=== PATIENT | female | born 1980 | race African-American/Black ===

== ENCOUNTER 2016-06-08 16:46 | Emergency (ER) | payer SELFPAY ==
[~2016-06-08] VITALS: Ht 167.6 cm; Wt 49.9 kg
[2016-06-08 17:20] VITALS: BP 130/83
[2016-06-08] MEDS ORDERED: CIPROFLOXACIN 0.3% OPHTH SOLUTION 5ML BOTTLE. AD STA (18:41)
[2016-06-08] MEDS ORDERED: AZITHROMYCIN 250 MG TABLET. PO ONE (18:45)
[2016-06-08] MEDS ORDERED: METRONIDAZOLE 500 MG TABLET. PO ONE (18:45)
[2016-06-08] MEDS ORDERED: CEFTRIAXONE IM 1 GM VIAL. IM ONE (18:45)
[2016-06-08] MEDS ORDERED: METR500T PO (19:07)
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
== END 2016-06-08 19:36 | disposition home or self-care (01) ==
LOC: ER 16:46
DX: H72.91 Unspecified perforation of tympanic membrane, right ear (principal); A59.01 Trichomonal vulvovaginitis; F12.10 Cannabis abuse, uncomplicated
CPT/HCPCS: 96372; 99283; J0696; Q0144

== ENCOUNTER 2017-06-09 04:29 | Emergency (ER) | payer SELFPAY ==
[2017-06-09] MEDS: IBUPROFEN 400 MG TABLET. PO (05:30)
== END 2017-06-09 06:04 | disposition home or self-care (01) ==
LOC: ER 04:29
DX: S46.912A Strain of unspecified muscle, fascia and tendon at shoulder and upper arm level, left arm, initial encounter (principal); F10.20 Alcohol dependence, uncomplicated; F12.10 Cannabis abuse, uncomplicated; W01.0XXA Fall on same level from slipping, tripping and stumbling without subsequent striking against object, initial encounter; Y93.89 Activity, other specified; Y92.89 Other specified places as the place of occurrence of the external cause; Y99.8 Other external cause status
CPT/HCPCS: 99283

== ENCOUNTER 2017-06-30 21:10 | Inpatient (IN) | payer SELFPAY ==
[2017-06-30] MEDS: ONDANSETRON PF 4 MG/2 ML VIAL. IV (21:44)
[2017-06-30] MEDS: IV NORMAL SALINE 1000ML BAG 1,000 ML IV ×2 (21:44→23:09)
[2017-06-30] MEDS: MORPHINE SULFATE 4 MG/ML DISP.SYRIN. IV (21:44)
[2017-06-30 21:46] LABS: BILIRUBIN,URINE NEGATIVE (NEG); CLARITY,URINE CLEAR; COLOR,URINE YELLOW; GLUCOSE,URINE NEGATIVE (NEG); NITRITE,URINE POSITIVE (NEG); PH,URINE 5.5; PROTEIN,URINE 30 mg/dL (NEG-TRACE); UROBILINOGEN,URINE 0.2 mg/dL (0.2 mg/dL)
[2017-06-30 21:47] LABS: URINE HCG POC HCG NEGATIVE (Negative)
[2017-06-30 21:56] LABS: BACTERIA,URINE MOD /HPF (0-FEW); RBC,URINE RARE /HPF (0-2); SQUAMOUS EPITHELIAL CELL,UR MANY /LPF; WBC,URINE RARE /HPF (0-4)
[2017-06-30 22:00] LABS: BASO # 0.1 x10^3/uL (0.0-0.2); BASO % 0 % (0-3); EOS % 0 % (0-3); HEMATOCRIT 37.3 % (36.0-47.0); HEMOGLOBIN 12.7 g/dL (12.0-15.5); LYMPH % 6 % (24-48); MEAN CORPUSCULAR HEMOGLOBIN 29 pg (25-35); MEAN CORPUSCULAR HGB CONC 34 g/dL (31-37); MEAN CORPUSCULAR VOLUME 86 fL (79-100); MONO # 0.9 x10^3/uL (0.0-1.1); MONO % 5 % (0-9); NEUT # 14.6 x10^3uL (1.8-7.7); NEUT % 88 % (31-73); PLATELET COUNT 110 x10^3/uL (140-400); RED BLOOD COUNT 4.36 x10^6/uL (3.50-5.40); RED CELL DISTRIBUTION WIDTH 13.2 % (11.5-14.5); WHITE BLOOD COUNT 16.6 x10^3/uL (4.0-11.0)
[2017-06-30 22:02] LABS: ADD MAN DIFF? YES
[2017-06-30 22:10] LABS: ANION GAP 21 (6-14); BLOOD UREA NITROGEN 9 mg/dL (7-20); BUN/CREATININE RATIO 13 (6-20); CALCIUM 8.6 mg/dL (8.5-10.1); CARBON DIOXIDE 21 mmol/L (21-32); CHLORIDE 96 mmol/L (98-107); CREATININE 0.7 mg/dL (0.6-1.0); GFR 114.6; GLUCOSE 111 mg/dL (70-99); POTASSIUM 3.3 mmol/L (3.5-5.1); SODIUM 138 mmol/L (136-145)
[2017-06-30 22:17] LABS: ALBUMIN 3.9 g/dL (3.4-5.0); ALK PHOS 84 U/L (46-116); ALT (SGPT) 48 U/L (14-59); AST (SGOT) 56 U/L (15-37); TOTAL BILIRUBIN 1.1 mg/dL (0.2-1.0)
[2017-06-30 22:23] LABS: TROPONINI < 0.017 ng/mL (0.000-0.055)
[2017-06-30 22:29] LABS: % BANDS 15 % (0-9); % LYMPHS 8 % (24-48); % METAS 1 % (0-0); % MONOS 2 % (0-10); % SEGS 74 % (35-66); PLT ESTIMATE DECREASED (ADEQUATE)
[2017-06-30] MEDS ORDERED: ACETAMINOPHEN 325 MG TABLET. PO (23:00)
[2017-06-30] MEDS ORDERED: fentaNYL PF VIAL 100 MCG/2 ML VIAL (23:02)
[2017-06-30] MEDS: AZITHROMYCIN 250 MG TABLET. PO (23:07)
[2017-06-30] MEDS: fentaNYL PF VIAL 100 MCG/2 ML VIAL IV (23:08)
[2017-06-30] MEDS: POTASSIUM CHLORIDE 20 MEQ TABLET.ER. PO (23:08)
[2017-06-30 23:17] LABS: LACTIC ACID 4.5 mmol/L (0.4-2.0)
[2017-07-01] MEDS: MORPHINE SULFATE 4 MG/ML DISP.SYRIN. IV ×4 (00:43→14:41)
[2017-07-01] MEDS ORDERED: PNEUMOCOCCAL VAX SCREEN BY RX. MC (01:15)
[2017-07-01 02:28] LABS: LACTIC ACID 1.2 mmol/L (0.4-2.0)
[2017-07-01 04:44] LABS: ADD MAN DIFF? NO
[2017-07-01 04:56] LABS: BASO % 0 % (0-3); EOS % 0 % (0-3); HEMATOCRIT 35.1 % (36.0-47.0); LYMPH # 1.6 x10^3/uL (1.0-4.8); LYMPH % 11 % (24-48); MEAN CORPUSCULAR HEMOGLOBIN 29 pg (25-35); MEAN CORPUSCULAR HGB CONC 34 g/dL (31-37); MEAN CORPUSCULAR VOLUME 86 fL (79-100); MONO # 0.7 x10^3/uL (0.0-1.1); MONO % 5 % (0-9); NEUT # 11.9 x10^3uL (1.8-7.7); NEUT % 83 % (31-73); PLATELET COUNT 104 x10^3/uL (140-400); RED BLOOD COUNT 4.09 x10^6/uL (3.50-5.40); RED CELL DISTRIBUTION WIDTH 13.3 % (11.5-14.5); WHITE BLOOD COUNT 14.3 x10^3/uL (4.0-11.0)
[2017-07-01 05:20] LABS: ALBUMIN 3.3 g/dL (3.4-5.0); ALBUMIN/GLOBULIN RATIO 0.8 (1.0-1.7); BLOOD UREA NITROGEN 8 mg/dL (7-20); BUN/CREATININE RATIO 13 (6-20); CREATININE 0.6 mg/dL (0.6-1.0); GFR 136.9; GLUCOSE 62 mg/dL (70-99); TOTAL PROTEIN 7.4 g/dL (6.4-8.2)
[2017-07-01 05:21] LABS: ALK PHOS 76 U/L (46-116); ALT (SGPT) 58 U/L (14-59); ANION GAP 13 (6-14); AST (SGOT) 54 U/L (15-37); CARBON DIOXIDE 25 mmol/L (21-32); CHLORIDE 101 mmol/L (98-107); POTASSIUM 3.3 mmol/L (3.5-5.1); SODIUM 139 mmol/L (136-145); TOTAL BILIRUBIN 1.1 mg/dL (0.2-1.0)
[2017-07-01] MEDS: POTASSIUM CHLORIDE 20 MEQ TABLET.ER. PO (10:35)
[2017-07-01] MEDS ORDERED: CONTRAST GIVEN MC (11:30)
[2017-07-01] MEDS: IOHEXOL 300 MG/ML 100ML VIAL. IV (12:40)
[2017-07-01] MEDS: PIPERACILLIN/TAZOBACTAM 4.5 GM in IV NORMAL SALINE 100ML 100 ML IV ×3 (14:38→23:07)
[2017-07-01] MEDS: ENOXAPARIN 40 MG/0.4 ML SYRINGE. SQ (15:49)
[2017-07-01] MEDS: PANTOPRAZOLE 40 MG TABLET.DR. PO (15:49)
[2017-07-01] MEDS: ONDANSETRON PF 4 MG/2 ML VIAL. IV (19:17)
[2017-07-01] MEDS ORDERED: ACETAMINOPHEN 325 MG TABLET. PO (19:45)
[2017-07-01] MEDS ORDERED: ONDANSETRON PF 4 MG/2 ML VIAL. IV (19:45)
[2017-07-01] MEDS: HYDROcodone/APAP 5/325MG 1 TAB TABLET PO (20:31)
[2017-07-01] MEDS: LACTOBACILLUS RHAMNOSUS GG 1 CAPSULE. PO (20:31)
[2017-07-02] MEDS: PIPERACILLIN/TAZOBACTAM 4.5 GM in IV NORMAL SALINE 100ML 100 ML IV ×4 (05:24→23:48)
[2017-07-02 06:30] LABS: HEMATOCRIT 36.8 % (36.0-47.0); HEMOGLOBIN 12.3 g/dL (12.0-15.5); MEAN CORPUSCULAR HEMOGLOBIN 29 pg (25-35); MEAN CORPUSCULAR HGB CONC 33 g/dL (31-37); MEAN CORPUSCULAR VOLUME 87 fL (79-100); PLATELET COUNT 90 x10^3/uL (140-400); RED BLOOD COUNT 4.21 x10^6/uL (3.50-5.40); RED CELL DISTRIBUTION WIDTH 13.4 % (11.5-14.5); WHITE BLOOD COUNT 7.4 x10^3/uL (4.0-11.0)
[2017-07-02 06:45] LABS: ALBUMIN/GLOBULIN RATIO 0.7 (1.0-1.7); ALK PHOS 63 U/L (46-116); ALT (SGPT) 35 U/L (14-59); ANION GAP 10 (6-14); AST (SGOT) 31 U/L (15-37); BLOOD UREA NITROGEN 4 mg/dL (7-20); BUN/CREATININE RATIO 6 (6-20); CALCIUM 8.6 mg/dL (8.5-10.1); CARBON DIOXIDE 27 mmol/L (21-32); CHLORIDE 101 mmol/L (98-107); CREATININE 0.7 mg/dL (0.6-1.0); GFR 114.6; GLUCOSE 76 mg/dL (70-99); POTASSIUM 3.8 mmol/L (3.5-5.1); SODIUM 138 mmol/L (136-145); TOTAL BILIRUBIN 1.1 mg/dL (0.2-1.0); TOTAL PROTEIN 7.3 g/dL (6.4-8.2)
[2017-07-02] MEDS: HYDROcodone/APAP 5/325MG 1 TAB TABLET PO ×2 (08:04→20:37)
[2017-07-02] MEDS: LACTOBACILLUS RHAMNOSUS GG 1 CAPSULE. PO ×2 (08:04→20:36)
[2017-07-02] MEDS: PANTOPRAZOLE 40 MG TABLET.DR. PO (08:04)
[2017-07-03 04:51] LABS: ADD MAN DIFF? NO
[2017-07-03 04:59] LABS: BASO % 0 % (0-3); EOS % 1 % (0-3); HEMATOCRIT 35.9 % (36.0-47.0); HEMOGLOBIN 12.2 g/dL (12.0-15.5); LYMPH # 1.3 x10^3/uL (1.0-4.8); LYMPH % 29 % (24-48); MEAN CORPUSCULAR HEMOGLOBIN 30 pg (25-35); MEAN CORPUSCULAR HGB CONC 34 g/dL (31-37); MEAN CORPUSCULAR VOLUME 87 fL (79-100); MONO # 0.4 x10^3/uL (0.0-1.1); MONO % 10 % (0-9); NEUT # 2.8 x10^3uL (1.8-7.7); NEUT % 61 % (31-73); PLATELET COUNT 96 x10^3/uL (140-400); RED BLOOD COUNT 4.14 x10^6/uL (3.50-5.40); RED CELL DISTRIBUTION WIDTH 13.4 % (11.5-14.5); WHITE BLOOD COUNT 4.6 x10^3/uL (4.0-11.0)
[2017-07-03] MEDS: PIPERACILLIN/TAZOBACTAM 4.5 GM in IV NORMAL SALINE 100ML 100 ML IV (05:38)
[2017-07-03 06:00] LABS: ANION GAP 12 (6-14); BLOOD UREA NITROGEN 4 mg/dL (7-20); CALCIUM 8.9 mg/dL (8.5-10.1); CARBON DIOXIDE 24 mmol/L (21-32); CHLORIDE 102 mmol/L (98-107); CREATININE 0.7 mg/dL (0.6-1.0); GFR 114.6; GLUCOSE 78 mg/dL (70-99); POTASSIUM 3.4 mmol/L (3.5-5.1); SODIUM 138 mmol/L (136-145)
[2017-07-03] MEDS: LACTOBACILLUS RHAMNOSUS GG 1 CAPSULE. PO ×2 (09:05→21:23)
[2017-07-03] MEDS: PANTOPRAZOLE 40 MG TABLET.DR. PO (09:05)
[2017-07-03] MEDS: AMOXICILLIN/K CLAV 875/125MG TABLET. PO ×2 (13:25→21:22)
[2017-07-04] MEDS: HYDROcodone/APAP 5/325MG 1 TAB TABLET PO (04:15)
[2017-07-04 05:06] LABS: ADD MAN DIFF? NO
[2017-07-04 05:28] LABS: BASO % 0 % (0-3); EOS % 0 % (0-3); HEMOGLOBIN 12.4 g/dL (12.0-15.5); LYMPH # 1.3 x10^3/uL (1.0-4.8); LYMPH % 19 % (24-48); MEAN CORPUSCULAR HEMOGLOBIN 29 pg (25-35); MEAN CORPUSCULAR HGB CONC 34 g/dL (31-37); MEAN CORPUSCULAR VOLUME 87 fL (79-100); MONO # 0.7 x10^3/uL (0.0-1.1); MONO % 11 % (0-9); NEUT # 4.7 x10^3uL (1.8-7.7); NEUT % 70 % (31-73); PLATELET COUNT 108 x10^3/uL (140-400); RED BLOOD COUNT 4.25 x10^6/uL (3.50-5.40); RED CELL DISTRIBUTION WIDTH 13.6 % (11.5-14.5); WHITE BLOOD COUNT 6.7 x10^3/uL (4.0-11.0)
[2017-07-04 05:45] LABS: ANION GAP 11 (6-14); BLOOD UREA NITROGEN 3 mg/dL (7-20); CALCIUM 8.9 mg/dL (8.5-10.1); CARBON DIOXIDE 26 mmol/L (21-32); CHLORIDE 102 mmol/L (98-107); CREATININE 0.6 mg/dL (0.6-1.0); GFR 136.9; GLUCOSE 92 mg/dL (70-99); POTASSIUM 3.3 mmol/L (3.5-5.1); SODIUM 139 mmol/L (136-145)
[2017-07-04] MEDS: PANTOPRAZOLE 40 MG TABLET.DR. PO (05:49)
[2017-07-04] MEDS: LACTOBACILLUS RHAMNOSUS GG 1 CAPSULE. PO (08:34)
[2017-07-04] MEDS: AMOXICILLIN/K CLAV 875/125MG TABLET. PO (08:34)
[2017-07-04] MEDS: POTASSIUM CHLORIDE 20 MEQ TABLET.ER. PO (14:36)
[2017-07-04] MEDS: PNEUMOC CONJ VACC 23-VALENT 0.5 ML VIAL. VAX IM (15:43)
== END 2017-07-04 16:00 | disposition home or self-care (01) | DRG 689 ==
LOC: ER 21:10 → 5 NORTH 23:10
DX: N39.0 Urinary tract infection, site not specified (principal); J18.9 Pneumonia, unspecified organism; E87.2 Acidosis; R04.2 Hemoptysis; E87.6 Hypokalemia; F12.10 Cannabis abuse, uncomplicated; F17.210 Nicotine dependence, cigarettes, uncomplicated; I10 Essential (primary) hypertension; K21.9 Gastro-esophageal reflux disease without esophagitis; Z82.49 Family history of ischemic heart disease and other diseases of the circulatory system; F14.10 Cocaine abuse, uncomplicated; F19.10 Other psychoactive substance abuse, uncomplicated
CPT/HCPCS: 36415; 71046; 71275; 80048; 80053; 81001; 81025; 83605; 84484; 85007; 85025; 85027; 87040; 90732; 93005; 96361; 96374; 96375; 99285; 99285-25; 99406; J0690; J1650; J2270; J2405; J2543; J3010; J7030; Q0144; Q9967

== ENCOUNTER 2017-12-02 00:56 | Emergency (ER) | payer SELFPAY ==
[~2017-12-02] VITALS: Ht 165.1 cm; Wt 49.9 kg
[~2017-12-02 00:56] MED LIST: IBUP-1027 PO; METR500T PO; [UNRECOGNIZED DRUG - REMARK]
[2017-12-02 02:13] LABS: BASO % 1 % (0-3); EOS % 0 % (0-3); HEMATOCRIT 40.9 % (36.0-47.0); HEMOGLOBIN 14.1 g/dL (12.0-15.5); LYMPH # 2.1 x10^3/uL (1.0-4.8); LYMPH % 56 % (24-48); MEAN CORPUSCULAR HEMOGLOBIN 31 pg (25-35); MEAN CORPUSCULAR HGB CONC 34 g/dL (31-37); MEAN CORPUSCULAR VOLUME 89 fL (79-100); MONO # 0.3 x10^3/uL (0.0-1.1); MONO % 9 % (0-9); NEUT # 1.2 x10^3uL (1.8-7.7); NEUT % 33 % (31-73); PLATELET COUNT 128 x10^3/uL (140-400); RED BLOOD COUNT 4.63 x10^6/uL (3.50-5.40); RED CELL DISTRIBUTION WIDTH 14.3 % (11.5-14.5); WHITE BLOOD COUNT 3.6 x10^3/uL (4.0-11.0)
[2017-12-02 02:33] LABS: CALCIUM 9.1 mg/dL (8.5-10.1); CREATININE 0.7 mg/dL (0.6-1.0); GFR 113.9; POTASSIUM 3.7 mmol/L (3.5-5.1)
[2017-12-02 02:39] LABS: ALBUMIN 4.5 g/dL (3.4-5.0); ALBUMIN/GLOBULIN RATIO 0.9 (1.0-1.7); TOTAL BILIRUBIN 0.3 mg/dL (0.2-1.0); TOTAL PROTEIN 9.3 g/dL (6.4-8.2)
[2017-12-02] MEDS ORDERED: IV NORMAL SALINE 1000ML BAG 1,000 ML IV ONE (04:00)
[2017-12-02] MEDS ORDERED: FAMOTIDINE 20 MG/2 ML VIAL IVP ONE (04:15)
[2017-12-02 04:30] VITALS: BP 104/59
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
--- NOTE | 2017-12-02 13:07 | EKG ---
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
== END 2017-12-02 06:17 | disposition home or self-care (01) ==
LOC: ER 00:56
DX: K29.70 Gastritis, unspecified, without bleeding (principal); F10.10 Alcohol abuse, uncomplicated; Y90.9 Presence of alcohol in blood, level not specified
CPT/HCPCS: 36415; 80053; 83690; 85025; 93005; 99285-25

== ENCOUNTER 2019-03-25 06:00 | Emergency (ER) | payer SELFPAY ==
[~2019-03-25] VITALS: Ht 157.5 cm; Wt 50.0 kg
[~2019-03-25 06:00] MED LIST changes: +ALBU2.5V8 INH; +CLON0.1T PO; +HYDR-2761 PO; +IPRA3AMP29 NEB; +LEVO500T59 PO; +Nicotine 21MG TD; +ONDA4TAB12 PO; +POTA20TA4 PO
[2019-03-25] MEDS ORDERED: IV NORMAL SALINE 1000ML BAG 1,000 ML IV SCH (06:45)
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
[2019-03-25 06:53] LABS: BASO % 1 % (0-3); EOS % 1 % (0-3); HEMATOCRIT 42.8 % (36.0-47.0); HEMOGLOBIN 14.4 g/dL (12.0-15.5); LYMPH # 2.1 x10^3/uL (1.0-4.8); LYMPH % 45 % (24-48); MEAN CORPUSCULAR HEMOGLOBIN 29 pg (25-35); MEAN CORPUSCULAR HGB CONC 34 g/dL (31-37); MEAN CORPUSCULAR VOLUME 86 fL (79-100); MONO # 0.4 x10^3/uL (0.0-1.1); MONO % 8 % (0-9); NEUT # 2.1 x10^3/uL (1.8-7.7); NEUT % 45 % (31-73); PLATELET COUNT 112 x10^3/uL (140-400); RED BLOOD COUNT 4.95 x10^6/uL (3.50-5.40); RED CELL DISTRIBUTION WIDTH 13.5 % (11.5-14.5); WHITE BLOOD COUNT 4.6 x10^3/uL (4.0-11.0)
--- NOTE | 2019-03-25 07:02 | EKG ---
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
[2019-03-25 07:05] LABS: CALCIUM 9.1 mg/dL (8.5-10.1); CREATININE 0.6 mg/dL (0.6-1.0); GFR 135.4; POTASSIUM 3.8 mmol/L (3.5-5.1)
[2019-03-25 07:11] LABS: ALBUMIN 4.9 g/dL (3.4-5.0); ALBUMIN/GLOBULIN RATIO 1.4 (1.0-1.7); TOTAL BILIRUBIN 0.9 mg/dL (0.2-1.0); TOTAL PROTEIN 8.4 g/dL (6.4-8.2)
[2019-03-25 07:13] LABS: PREG TEST PT QUAL NEGATIVE (NEG)
[2019-03-25 07:18] LABS: INFLUENZA A PATIENT NEGATIVE (NEGATIVE); INFLUENZA B PATIENT NEGATIVE (NEGATIVE)
[2019-03-25 07:36] LABS: PLT ESTIMATE DECREASED (ADEQUATE)
[2019-03-25 07:38] LABS: TARGET CELLS PRESENT
--- NOTE | 2019-03-25 07:41 | RAD ---
PA and lateral chest. HISTORY: Cough, chest pain PA and lateral views were taken of the chest. Lungs are free of infiltrates. Heart is normal in size without heart failure. There is no effusion. IMPRESSION: 1. No acute chest disease. Electronically signed by: Lalito Sotomayor MD (03/25/2019 7:38 AM) [id number]
[2019-03-25] MEDS ORDERED: IV NORMAL SALINE 1000ML BAG 1,000 ML IV ONE ×2 (07:45)
[2019-03-25 12:29] LABS: CALCIUM 7.9 mg/dL (8.5-10.1); CREATININE 0.6 mg/dL (0.6-1.0); GFR 135.4; POTASSIUM 3.6 mmol/L (3.5-5.1)
[2019-03-25 13:32] VITALS: BP 157/82
== END 2019-03-25 13:57 | disposition home or self-care (01) ==
LOC: ER 06:00
DX: F10.20 Alcohol dependence, uncomplicated (principal); R07.89 Other chest pain; E86.0 Dehydration; M54.5 Low back pain; I10 Essential (primary) hypertension; F17.210 Nicotine dependence, cigarettes, uncomplicated; F12.90 Cannabis use, unspecified, uncomplicated; Z98.890 Other specified postprocedural states; Y90.8 Blood alcohol level of 240 mg/100 ml or more
CPT/HCPCS: 36415; 71046; 80048; 80053; 83605; 84484; 84703; 85025; 87804; 93005; 96360; 96361; 99285; G0480; J7030

== ENCOUNTER 2019-09-04 12:27 | Emergency (ER) | payer SELFPAY ==
[~2019-09-04] VITALS: Ht 157.5 cm; Wt 48.2 kg
[2019-09-04] MEDS ORDERED: HYDROcodone/APAP 5/325MG 1 TAB TABLET PO ONE (14:15)
--- NOTE | 2019-09-04 14:24 | RAD ---
Left forearm 2 views, left wrist 3 views. HISTORY: Pain and swelling after a fall Left wrist 3 views were taken of the left wrist. There is a comminuted fracture the distal ulna. There is no other fracture noted at the left wrist. Distal radius is intact. Left forearm 2 views of the left forearm show a comminuted fracture the distal ulna. Radius fracture is not evident. IMPRESSION: 1. Comminuted fracture distal left ulna. 2. No radius fracture noted. 3. No other fracture noted at the left wrist. Electronically signed by: Lalito Sotomayor MD (09/04/2019 2:21 PM) [facility]
[2019-09-04] MEDS ORDERED: HYDR-2761 PO (16:14)
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
[2019-09-04 16:42] VITALS: BP 110/61
== END 2019-09-04 16:42 | disposition home or self-care (01) ==
LOC: ER 12:27
DX: S52.002A Unspecified fracture of upper end of left ulna, initial encounter for closed fracture (principal); I10 Essential (primary) hypertension; F17.200 Nicotine dependence, unspecified, uncomplicated; F10.20 Alcohol dependence, uncomplicated; Y90.9 Presence of alcohol in blood, level not specified; W10.8XXA Fall (on) (from) other stairs and steps, initial encounter; Y93.89 Activity, other specified; Y92.89 Other specified places as the place of occurrence of the external cause; Y99.8 Other external cause status
CPT/HCPCS: 29125; 73090; 73110; 99284

== ENCOUNTER 2020-04-24 14:21 | Inpatient (IN) | payer SELFPAY ==
[~2020-04-24] VITALS: Ht 157.5 cm; Wt 49.0 kg
[~2020-04-24 14:21] MED LIST changes: +MORPHINE SULFATE 4 MG/ML VIAL. IV PRN
[2020-04-24 15:27] LABS: BASO % 0 % (0-3); EOS % 0 % (0-3); HEMATOCRIT 40.5 % (36.0-47.0); HEMOGLOBIN 13.7 g/dL (12.0-15.5); LYMPH % 7 % (24-48); MEAN CORPUSCULAR HEMOGLOBIN 30 pg (25-35); MEAN CORPUSCULAR HGB CONC 34 g/dL (31-37); MEAN CORPUSCULAR VOLUME 88 fL (79-100); MONO # 0.7 x10^3/uL (0.0-1.1); MONO % 4 % (0-9); NEUT # 13.3 x10^3/uL (1.8-7.7); NEUT % 88 % (31-73); PLATELET COUNT 143 x10^3/uL (140-400); WHITE BLOOD COUNT 15.1 x10^3/uL (4.0-11.0)
[2020-04-24 15:28] LABS: BILIRUBIN,URINE SMALL (NEG); CLARITY,URINE TURBID; COLOR,URINE AMBER; NITRITE,URINE POSITIVE (NEG); PH,URINE 6.5 (<5.0-8.0); PROTEIN,URINE 30 mg/dL (NEG-TRACE)
[2020-04-24 15:38] LABS: BACTERIA,URINE MANY /HPF (0-FEW)
[2020-04-24 15:39] LABS: RBC,URINE 0 /HPF (0-2)
[2020-04-24 15:43] LABS: TRICHOMONAS,URINE PRESENT
[2020-04-24 15:46] LABS: U PREG PATIENT NEGATIVE (NEG)
[2020-04-24] MEDS ORDERED: IOHEXOL 300 MG/ML 100ML VIAL. IV ONE (16:15)
[2020-04-24 16:16] LABS: CALCIUM 9.1 mg/dL (8.5-10.1); CREATININE 0.7 mg/dL (0.6-1.0); GFR 112.7; POTASSIUM 3.5 mmol/L (3.5-5.1)
[2020-04-24 16:30] LABS: % BANDS 6 % (0-9); % MONOS 2 % (0-10); PLT ESTIMATE ADEQUATE (ADEQUATE)
[2020-04-24] MEDS ORDERED: CONTRAST GIVEN. MC PRN (16:30)
[2020-04-24 16:31] LABS: % LYMPHS 4 % (24-48); % SEGS 88 % (35-66); TARGET CELLS FEW
--- NOTE | 2020-04-24 16:56 | RAD ---
CT pelvis with IV contrast 04/24/2020. Reason for exam: Swelling at left labia. CT images were made through the pelvis following injection of 75 mL Omnipaque 300. Sagittal and coron al reconstructions were performed. Exposure: One or more of the following individualized dose reducti on techniques were utilized for this examination: 1. Automated exposure control 2. Adjustment of th e mA and/or kV according to patient size 3. Use of iterative reconstruction technique. FINDINGS: There is an oval area of fluid density in the region of the left labia. This abnormality ex tends over about 2.9 cm AP, 2.0 cm laterally, and 2.7 cm craniocaudally. There is no apparent extensi on up to the vagina. The initial rectal fossa appears unaffected. No abnormality is seen at the distal ureters or bladder. Mildly prominent inguinal lymph nodes are pr esumably reactive. There is no apparent pelvic adenopathy. The uterus contains a contraceptive device . This seems somewhat inferiorly positioned, with the lower and possibly protruding into or through t he cervical canal. The uterus and adnexal structures otherwise appear normal for age. No separate pel stephanie mass or inflammatory process is seen. IMPRESSION: There is a rim-enhancing fluid collection in the region of the left labia, consistent wit h history of abscess. Patient's contraceptive device may be more inferiorly positioned than desired. Electronically signed by: Todd Parrish Jr., MD (04/24/2020 4:54 PM) [id number]
[2020-04-24] MEDS ORDERED: PIPERACILLIN/TAZOBACTAM 4.5 GM in IV NORMAL SALINE 100ML 100 ML IV ONE (18:00)
[2020-04-24] MEDS ORDERED: VANCOMYCIN 1.25 GM in IV NORMAL SALINE 250ML 250 ML IV ONE (18:00)
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
[2020-04-24] MEDS ORDERED: MORPHINE SULFATE 2 MG/ML VIAL. IV PRN (18:15)
[2020-04-24] MEDS ORDERED: DEXTROSE 50% 25 GM / 50ML DISP.SYRIN. IV PRN (18:15)
[2020-04-24] MEDS ORDERED: ACETAMINOPHEN 325 MG TABLET. PO PRN (18:15)
[2020-04-24] MEDS ORDERED: DOCUSATE SODIUM 100 MG CAPSULE. PO PRN (18:15)
[2020-04-24] MEDS ORDERED: ONDANSETRON PF 4 MG/2 ML VIAL. IVP PRN (18:15)
[2020-04-24] MEDS ORDERED: SENNOSIDES 8.6 MG TABLET PO PRN (18:15)
--- NOTE | 2020-04-24 18:17 | PDOC1 ---
History and Physical Date of Service: DOS: DATE: 04/24/20 TIME: 18:09 Chief Complaint: Chief Complain: Vaginal swelling History of Present Illness: HPI: Patient is 39-year-old female with past medical history of multiple pregnancies, one-time and's history of sickle cell trait who presents with vaginal pain and discomfort for 2 days. She has associated lower back pain and chills for 3 to 4 days and a cough for 1 month. Patient also endorses some sharp chest pain during coughing. Patient states that she is sexually active. She does complain of some dysuria and itching in the area. Denies shortness of breath, diarrhea, abdominal pain or palpitations. No history of sick contacts. Past Medical/Surgical History: PMH/PSH: PMHx: Sickle cell trait, 6 pregnancies and 1 Past surgical history: Left femur fracture with surgery Allergies: Allergies: Coded Allergies: No Known Drug Allergies (Unverified , 09/04/19) Family History: Family History: MD in the father and hypertension Social History: Social History: Endorses history of marijuana use and cocaine abuse. Current Medications: Current Medications Current Medications Iohexol (Omnipaque 300 Mg/ml) 75 ml 1X ONCE IV Last administered on 04/24/20at 16:40; Start 04/24/20 at 16:15; Stop 04/24/20 at 16:17; Status DC Info (CONTRAST GIVEN -- Rx MONITORING) 1 each PRN DAILY PRN MC SEE COMMENTS; Start 04/24/20 at 16:30; Stop 04/26/20 at 16:29 Piperacillin Sod/ Tazobactam Sod 4.5 gm/Sodium Chloride 100 ml @ 200 mls/hr 1X ONCE IV Last administered on 04/24/20at 18:04; Start 04/24/20 at 18:00; Stop 04/24/20 at 18:29 Vancomycin HCl (Vanco Per Pharmacy) 1 each PRN DAILY PRN MC SEE COMMENTS; Start 04/24/20 at 18:00; Status UNV Vancomycin HCl 1.25 gm/Sodium Chloride 250 ml @ 166.667 mls/hr 1X ONCE IV ; Start 04/24/20 at 18:00; Stop 04/24/20 at 19:29 Active Scripts Active Hydrocodone-Apap 5-325 (Hydrocodone Bit/Acetaminophen) 1 Tab Tablet 1 Tab PO PRN Q6HRS PRN 5 Days Proair Hfa Inhaler (Albuterol Sulfate) 8.5 Gm Hfa.aer.ad 1 Puff INH PRN Q6HRS PRN 14 Days Levaquin (Levofloxacin) 500 Mg Tablet 1 Tab PO DAILY Clonidine Hcl 0.1 Mg Tablet 0.1 Mg PO BID Ondansetron Odt (Ondansetron) 4 Mg Tab.rapdis 4 Mg PO PRN Q6HRS PRN Klor-Con M20 (Potassium Chloride) 20 Meq Tab.er.prt 20 Meq PO DAILYWBKFT MDD 1 Hydrocodone-Apap 5-325 (Hydrocodone Bit/Acetaminophen) 1 Each Tablet 1 Tab PO PRN Q4HRS PRN [Nicotine 21MG] 1 PATCH Patch 1 Patch TD DAILY Duoneb 0.5-3(2.5) Mg/3 Ml (Albuterol/Ipratropium) 3 Ml Ampul.neb 3 Ml NEB PRN Q2HR PRN MDD soa Reported [{No home meds}] ROS: Review of Systems Review of System REVIEW OF SYSTEMS: GENERAL: Denies weakness SKIN: No bruising, hair changes or rashes. EYES: No blurred, double or loss of vision. NOSE AND THROAT: No history of nosebleeds, hoarseness or sore throat. HEART: No history of palpitations, chest pain or shortness of breath on exertion. LUNGS: Denies cough, hemoptysis, wheezing or shortness of breath. GASTROINTESTINAL: Denies changes in appetite, nausea, vomiting, diarrhea or constipation. GENITOURINARY: No history of frequency, urgency, hesitancy or nocturia. NEUROLOGIC: Denies history of numbness, tingling, or tremor. PSYCHIATRIC: No history of panic, anxiety or depression. ENDOCRINE: No history of heat or cold intolerance, polyuria or polydipsia. EXTREMITIES: Denies joint pain, pain on walking or stiffness. Physical Exam: Vital Signs: Vital Signs Date Time Temp Pulse Resp B/P (MAP) Pulse Ox O2 Delivery O2 Flow Rate FiO2 04/24/20 14:25 98.2 113 16 151/77 (101) 100 Room Air 98.2 Physcial Exam: GEN: No apparent distress. Alert and oriented HEENT: Normal cephalic, atraumatic, external auditory canals are patent EYES: Extraocular muscles are intact, pupil are equally round and reactive to light and accommodation MUSCULOSKELETAL: Well developed , well nourished, good range of motion ENDOCRINE: No thyromegaly was palpated LYMPHATICS: No cervical chain or axillary nodes were noted HEMATOPOIETIC: No bruising NECK: Supple, no JVD, no thyromegaly was noted LUNGS: Clear to auscultation in all lung irby without rhonchi or wheezing HEART: RRR, S!, S2 present. Peripheral pulses intact, no obvious murmurs noted ABDOMEN: Soft, nontender. Positive bowel sounds, no organomegaly, normal bowel sounds EXTREMITIES: Without clubbing, cyanosis, or edema. Pedal pulses intact. Negative Homans sign NEUROLOGIC: Normal speech and tone. A&O x 3, moves all extremities, no obvious focal deficits PSYCHIATRIC: Normal affect, normal mood. Stable SKIN: Left labial abscess with purulent drainage VASCULAR: Good capillary refill, neurovascular bundle appears to be intact Labs: Labs: Laboratory Tests Test 04/24/20 15:15 04/24/20 15:50 White Blood Count 15.1 x10^3/uL (4.0-11.0) Red Blood Count 4.60 x10^6/uL (3.50-5.40) Hemoglobin 13.7 g/dL (12.0-15.5) Hematocrit 40.5 % (36.0-47.0) Mean Corpuscular Volume 88 fL (79-100) Mean Corpuscular Hemoglobin 30 pg (25-35) Mean Corpuscular Hemoglobin Concent 34 g/dL (31-37) Red Cell Distribution Width 13.0 % (11.5-14.5) Platelet Count 143 x10^3/uL (140-400) Neutrophils (%) (Auto) 88 % (31-73) Lymphocytes (%) (Auto) 7 % (24-48) Monocytes (%) (Auto) 4 % (0-9) Eosinophils (%) (Auto) 0 % (0-3) Basophils (%) (Auto) 0 % (0-3) Neutrophils # (Auto) 13.3 x10^3/uL (1.8-7.7) Lymphocytes # (Auto) 1.0 x10^3/uL (1.0-4.8) Monocytes # (Auto) 0.7 x10^3/uL (0.0-1.1) Eosinophils # (Auto) 0.0 x10^3/uL (0.0-0.7) Basophils # (Auto) 0.0 x10^3/uL (0.0-0.2) Segmented Neutrophils % 88 % (35-66) Band Neutrophils % 6 % (0-9) Lymphocytes % 4 % (24-48) Monocytes % 2 % (0-10) Platelet Estimate Adequate (ADEQUATE) Target Cells Few Urine Collection Type Unknown Urine Color Nathalia Urine Clarity Turbid Urine pH 6.5 (<5.0-8.0) Urine Specific [place] 1.020 (1.000-1.030) Urine Protein 30 mg/dL (NEG-TRACE) Urine Glucose (UA) Negative mg/dL (NEG) Urine Ketones (Stick) 40 mg/dL (NEG) Urine Blood Negative (NEG) Urine Nitrite Positive (NEG) Urine Bilirubin Small (NEG) Urine Urobilinogen Dipstick 1.0 mg/dL (0.2 mg/dL) Urine Leukocyte Esterase Moderate (NEG) Urine RBC 0 /HPF (0-2) Urine WBC 11-20 /HPF (0-4) Urine Squamous Epithelial Cells Many /LPF Urine Bacteria Many /HPF (0-FEW) Urine Mucus Marked /LPF Urine Trichomonas Present Urine Test Negative (NEG) Sodium Level 131 mmol/L (136-145) Potassium Level 3.5 mmol/L (3.5-5.1) Chloride Level 95 mmol/L (98-107) Carbon Dioxide Level 26 mmol/L (21-32) Anion Gap 10 (6-14) Blood Urea Nitrogen 6 mg/dL (7-20) Creatinine 0.7 mg/dL (0.6-1.0) Estimated GFR (Cockcroft-Gault) 112.7 Glucose Level 116 mg/dL (70-99) Calcium Level 9.1 mg/dL (8.5-10.1) Laboratory Tests Test 04/24/20 15:15 04/24/20 15:50 White Blood Count 15.1 x10^3/uL (4.0-11.0) Red Blood Count 4.60 x10^6/uL (3.50-5.40) Hemoglobin 13.7 g/dL (12.0-15.5) Hematocrit 40.5 % (36.0-47.0) Mean Corpuscular Volume 88 fL (79-100) Mean Corpuscular Hemoglobin 30 pg (25-35) Mean Corpuscular Hemoglobin Concent 34 g/dL (31-37) Red Cell Distribution Width 13.0 % (11.5-14.5) Platelet Count 143 x10^3/uL (140-400) Neutrophils (%) (Auto) 88 % (31-73) Lymphocytes (%) (Auto) 7 % (24-48) Monocytes (%) (Auto) 4 % (0-9) Eosinophils (%) (Auto) 0 % (0-3) Basophils (%) (Auto) 0 % (0-3) Neutrophils # (Auto) 13.3 x10^3/uL (1.8-7.7) Lymphocytes # (Auto) 1.0 x10^3/uL (1.0-4.8) Monocytes # (Auto) 0.7 x10^3/uL (0.0-1.1) Eosinophils # (Auto) 0.0 x10^3/uL (0.0-0.7) Basophils # (Auto) 0.0 x10^3/uL (0.0-0.2) Segmented Neutrophils % 88 % (35-66) Band Neutrophils % 6 % (0-9) Lymphocytes % 4 % (24-48) Monocytes % 2 % (0-10) Platelet Estimate Adequate (ADEQUATE) Target Cells Few Urine Collection Type Unknown Urine Color Nathalia Urine Clarity Turbid Urine pH 6.5 (<5.0-8.0) Urine Specific [place] 1.020 (1.000-1.030) Urine Protein 30 mg/dL (NEG-TRACE) Urine Glucose (UA) Negative mg/dL (NEG) Urine Ketones (Stick) 40 mg/dL (NEG) Urine Blood Negative (NEG) Urine Nitrite Positive (NEG) Urine Bilirubin Small (NEG) Urine Urobilinogen Dipstick 1.0 mg/dL (0.2 mg/dL) Urine Leukocyte Esterase Moderate (NEG) Urine RBC 0 /HPF (0-2) Urine WBC 11-20 /HPF (0-4) Urine Squamous Epithelial Cells Many /LPF Urine Bacteria Many /HPF (0-FEW) Urine Mucus Marked /LPF Urine Trichomonas Present Urine Test Negative (NEG) Sodium Level 131 mmol/L (136-145) Potassium Level 3.5 mmol/L (3.5-5.1) Chloride Level 95 mmol/L (98-107) Carbon Dioxide Level 26 mmol/L (21-32) Anion Gap 10 (6-14) Blood Urea Nitrogen 6 mg/dL (7-20) Creatinine 0.7 mg/dL (0.6-1.0) Estimated GFR (Cockcroft-Gault) 112.7 Glucose Level 116 mg/dL (70-99) Calcium Level 9.1 mg/dL (8.5-10.1) Images: Images Pelvic CT IMPRESSION: There is a rim-enhancing fluid collection in the region of the left labia, consistent with history of abscess. Patient's contraceptive device may be more inferiorly positioned than desired. Assessment/Plan Assessment/Plan Sepsis due to UTI and labial abscess, trichomonas and possible gram-negative organisms Left labial abscess Trichomonal infection Acute UTI Acute electrolyte derangement suggestive of volume depletionhyponatremia, hypochloremia Malpositioned IUD Polysubstance abuse Admit to medicine for further management Gynecology consult for management of labial abscess and IUD malpositioned Continue empiric IV antibiotics HIV testing Pending Chlamydia/gonorrhea PCR ID consult Lovenox for DVT prophylaxis ADA diet Full code Discussed with RN and SW Disposition pending NITROGLYCERIN DISTRIBUTOR evaluation Surrogate decision maker is the mother Justifications for Admission Other Justification GAUTAM JONES MD Apr 24, 2020 18:17
[2020-04-24] MEDS: IV NORMAL SALINE 1000ML BAG 1,000 ML IV SCH (18:40)
[2020-04-24] MEDS: VANCOMYCIN PER PHARMACY MC PRN (19:25)
--- NOTE | 2020-04-24 19:27 | NUR ---
Pharmacy Vancomycin Dosing Note S:Consulted to monitor and dose vancomycin started 04/24/20. O:FLAQUITA CÁRDENAS is a 39 year old F with Cellulitis . Height: 5 feet, 2 inches Weight: 50.0 kg [place] Body Weight: 50.10 Adjusted Body Weight: 50.06 Dosing Weight: Actual Other Antibiotics: ZOSYN X1 LABS: Last BUN: 6 Last Creatinine: 0.7 Creatinine Clearance: 85 mL/min Last WBC: 15.1 Last Procalcitonin: Tmax (past 24 hours): 98.2 Microbiology: I/O: Drug Levels: Last level: on at Last dose given 04/24/20 at 1836 Vancomycin Dosing: Loading Dose: 1250 mg x1 Dosing Weight: Actual Target Trough: 10-20 A: Based on: Body weight and renal funcion P: 1. After loading dose, start Vancomycin 750 mg IV q12h 2. Follow up Trough level on 04/26/20 at 0600 3. Pharmacy will continue to monitor, follow and adjust therapy as needed. JAMEL BENITEZ RPH, 04/24/20 1920
--- NOTE | 2020-04-24 20:41 | RAD ---
EXAM: XR CHEST 1V INDICATION: Reason: cough / Spl. Instructions: / History: . TECHNIQUE: Single view COMPARISON: Chest x-ray of 03/23/2019, CT angiogram chest of 07/01/2017 FINDINGS: The heart size is normal. The great vessels appear unremarkable. There is no hilar or mediastinal mass. The lungs are clear. There is no pleural effusion or pneumothorax. There are no significant osseous abnormalities. Prominent nipple shadows bilaterally are incidentally noted similar to prior. IMPRESSION: No active cardiopulmonary disease. Electronically signed by: Yoana Hodges MD (04/24/2020 8:38 PM) [facility] – [place]
[2020-04-24 21:35] VITALS: BP 158/82
--- NOTE | 2020-04-24 21:35 | NUR ---
The patient, FLAQUITA CÁRDENAS, 39 y/o, F admitted by GAUTAM JONES MD, was given written information regarding hospital policies, unit procedures and contact persons. Valuables were checked and pt refused any items to be locked up in security. VSS. Denies needs other than pain meds. Will continue to monitor.
[2020-04-24] MEDS: LACTOBACILLUS RHAMNOSUS GG 1 CAPSULE. PO SCH (21:54)
[2020-04-24] MEDS: ENOXAPARIN 40 MG/0.4 ML SYRINGE. SQ SCH (21:55)
[2020-04-24] MEDS: HYDROcodone/APAP 5/325MG 1 TAB TABLET PO PRN (21:58)
[2020-04-24] MEDS ORDERED: IBUP-1027 PO (22:17)
[2020-04-24] MEDS ORDERED: ACET325T9 PO (22:17)
[2020-04-24] MEDS ORDERED: NAPR220T70 PO (22:17)
[2020-04-24 23:00] VITALS: BP 112/61
[2020-04-25 03:29] VITALS: BP 99/63
[2020-04-25] MEDS: IV NORMAL SALINE 1000ML BAG 1,000 ML IV SCH ×3 (06:25→21:30)
[2020-04-25] MEDS: HYDROcodone/APAP 5/325MG 1 TAB TABLET PO PRN ×3 (06:25→21:31)
[2020-04-25] MEDS: VANCOMYCIN 750 MG in IV NORMAL SALINE 250ML 250 ML IV SCH ×2 (06:26→18:14)
[2020-04-25 07:00] VITALS: BP 125/71
[2020-04-25 07:24] LABS: BASO % 0 % (0-3); EOS % 0 % (0-3); HEMATOCRIT 36.1 % (36.0-47.0); LYMPH # 0.6 x10^3/uL (1.0-4.8); LYMPH % 5 % (24-48); MEAN CORPUSCULAR HEMOGLOBIN 29 pg (25-35); MEAN CORPUSCULAR HGB CONC 33 g/dL (31-37); MEAN CORPUSCULAR VOLUME 88 fL (79-100); MONO # 0.6 x10^3/uL (0.0-1.1); MONO % 5 % (0-9); NEUT # 11.8 x10^3/uL (1.8-7.7); NEUT % 90 % (31-73); PLATELET COUNT 119 x10^3/uL (140-400); RED BLOOD COUNT 4.12 x10^6/uL (3.50-5.40); RED CELL DISTRIBUTION WIDTH 12.7 % (11.5-14.5)
[2020-04-25 08:04] LABS: CREATININE 0.6 mg/dL (0.6-1.0); GFR 134.7; MAGNESIUM 1.6 mg/dL (1.8-2.4); PHOSPHORUS 3.7 mg/dL (2.6-4.7); POTASSIUM 3.1 mmol/L (3.5-5.1)
[2020-04-25] MEDS: LACTOBACILLUS RHAMNOSUS GG 1 CAPSULE. PO SCH ×2 (09:00→21:23)
--- NOTE | 2020-04-25 09:48 | PDOC ---
Infectious Disease Note Vital Signs: Vital Signs Vital Signs Date Time Temp Pulse Resp B/P (MAP) Pulse Ox O2 Delivery O2 Flow Rate FiO2 04/25/20 07:00 98.6 78 22 125/71 (89) 100 Room Air 98.6 Medications: Inpatient Meds: Medications reviewed. Labs: Lab Laboratory Tests Test 04/24/20 15:15 04/24/20 15:50 04/25/20 06:15 White Blood Count 15.1 x10^3/uL (4.0-11.0) 13.0 x10^3/uL (4.0-11.0) Red Blood Count 4.60 x10^6/uL (3.50-5.40) 4.12 x10^6/uL (3.50-5.40) Hemoglobin 13.7 g/dL (12.0-15.5) 12.0 g/dL (12.0-15.5) Hematocrit 40.5 % (36.0-47.0) 36.1 % (36.0-47.0) Mean Corpuscular Volume 88 fL (79-100) 88 fL (79-100) Mean Corpuscular Hemoglobin 30 pg (25-35) 29 pg (25-35) Mean Corpuscular Hemoglobin Concent 34 g/dL (31-37) 33 g/dL (31-37) Red Cell Distribution Width 13.0 % (11.5-14.5) 12.7 % (11.5-14.5) Platelet Count 143 x10^3/uL (140-400) 119 x10^3/uL (140-400) Neutrophils (%) (Auto) 88 % (31-73) 90 % (31-73) Lymphocytes (%) (Auto) 7 % (24-48) 5 % (24-48) Monocytes (%) (Auto) 4 % (0-9) 5 % (0-9) Eosinophils (%) (Auto) 0 % (0-3) 0 % (0-3) Basophils (%) (Auto) 0 % (0-3) 0 % (0-3) Neutrophils # (Auto) 13.3 x10^3/uL (1.8-7.7) 11.8 x10^3/uL (1.8-7.7) Lymphocytes # (Auto) 1.0 x10^3/uL (1.0-4.8) 0.6 x10^3/uL (1.0-4.8) Monocytes # (Auto) 0.7 x10^3/uL (0.0-1.1) 0.6 x10^3/uL (0.0-1.1) Eosinophils # (Auto) 0.0 x10^3/uL (0.0-0.7) 0.0 x10^3/uL (0.0-0.7) Basophils # (Auto) 0.0 x10^3/uL (0.0-0.2) 0.0 x10^3/uL (0.0-0.2) Segmented Neutrophils % 88 % (35-66) Band Neutrophils % 6 % (0-9) Lymphocytes % 4 % (24-48) Monocytes % 2 % (0-10) Platelet Estimate Adequate (ADEQUATE) Target Cells Few Urine Collection Type Unknown Urine Color Nathalia Urine Clarity Turbid Urine pH 6.5 (<5.0-8.0) Urine Specific [place] 1.020 (1.000-1.030) Urine Protein 30 mg/dL (NEG-TRACE) Urine Glucose (UA) Negative mg/dL (NEG) Urine Ketones (Stick) 40 mg/dL (NEG) Urine Blood Negative (NEG) Urine Nitrite Positive (NEG) Urine Bilirubin Small (NEG) Urine Urobilinogen Dipstick 1.0 mg/dL (0.2 mg/dL) Urine Leukocyte Esterase Moderate (NEG) Urine RBC 0 /HPF (0-2) Urine WBC 11-20 /HPF (0-4) Urine Squamous Epithelial Cells Many /LPF Urine Bacteria Many /HPF (0-FEW) Urine Mucus Marked /LPF Urine Trichomonas Present Urine Test Negative (NEG) Sodium Level 131 mmol/L (136-145) 132 mmol/L (136-145) Potassium Level 3.5 mmol/L (3.5-5.1) 3.1 mmol/L (3.5-5.1) Chloride Level 95 mmol/L (98-107) 97 mmol/L (98-107) Carbon Dioxide Level 26 mmol/L (21-32) 22 mmol/L (21-32) Anion Gap 10 (6-14) 13 (6-14) Blood Urea Nitrogen 6 mg/dL (7-20) 6 mg/dL (7-20) Creatinine 0.7 mg/dL (0.6-1.0) 0.6 mg/dL (0.6-1.0) Estimated GFR (Cockcroft-Gault) 112.7 134.7 Glucose Level 116 mg/dL (70-99) 82 mg/dL (70-99) Calcium Level 9.1 mg/dL (8.5-10.1) 8.0 mg/dL (8.5-10.1) Phosphorus Level 3.7 mg/dL (2.6-4.7) Magnesium Level 1.6 mg/dL (1.8-2.4) Objective: Assessment: Patient seen and examined ID consult dictated Plan: Plan of Care [id number] Thank you RANDELL HEATON MD Apr 25, 2020 09:48
--- NOTE | 2020-04-25 10:40 | PDOC ---
[employer] PROGRESS NOTE Date of Service DOS: DATE: 04/25/20 TIME: 10:39 Chief Complaint Chief Complaint Sepsis due to UTI and labial abscess, trichomonas and possible gram-negative organisms Left labial abscess Trichomonal infection Acute UTI Acute electrolyte derangement suggestive of volume depletionhyponatremia, hypochloremia, hypokalemia and hypomagnesemia Malpositioned IUD Polysubstance abuse Admit to medicine for further management Gynecology consult for management of labial abscess and IUD malpositioned Continue empiric IV antibiotics HIV testing Pending Chlamydia/gonorrhea PCR IV electrolyte replacement as needed ID consult Lovenox for DVT prophylaxis ADA diet Full code Discussed with RN and SW Disposition pending CLAIM PROCESSING SPECIALIST evaluation Surrogate decision maker is the mother History of Present Illness History of Present Illness 04/25/2020 No acute events overnight. Afebrile. Patient does endorse some chills. Denies nausea or vomiting. No concerns from nursing. Patient's chart, labs, images were reviewed and discussed with RN 39-year-old female with past medical history of multiple pregnancies, one-time and's history of sickle cell trait who presents with vaginal pain and discomfort for 2 days. She has associated lower back pain and chills for 3 to 4 days and a cough for 1 month. Patient also endorses some sharp chest pain during coughing. Patient states that she is sexually active. She does complain of some dysuria and itching in the area. Denies shortness of breath, diarrhea, abdominal pain or palpitations. No history of sick contacts. Vitals/I&O Vitals/I&O: Vital Signs Date Time Temp Pulse Resp B/P (MAP) Pulse Ox O2 Delivery O2 Flow Rate FiO2 04/25/20 10:13 Room Air 04/25/20 07:00 98.6 78 22 125/71 (89) 100 98.6 I & O 04/24/20 04/24/20 04/25/20 15:00 23:00 07:00 Intake Total 1700 ml Balance 1700 ml Physical Exam Lungs: Crackles Labs Labs: Laboratory Tests Test 04/24/20 15:15 04/24/20 15:50 04/25/20 06:15 White Blood Count 15.1 x10^3/uL (4.0-11.0) 13.0 x10^3/uL (4.0-11.0) Red Blood Count 4.60 x10^6/uL (3.50-5.40) 4.12 x10^6/uL (3.50-5.40) Hemoglobin 13.7 g/dL (12.0-15.5) 12.0 g/dL (12.0-15.5) Hematocrit 40.5 % (36.0-47.0) 36.1 % (36.0-47.0) Mean Corpuscular Volume 88 fL (79-100) 88 fL (79-100) Mean Corpuscular Hemoglobin 30 pg (25-35) 29 pg (25-35) Mean Corpuscular Hemoglobin Concent 34 g/dL (31-37) 33 g/dL (31-37) Red Cell Distribution Width 13.0 % (11.5-14.5) 12.7 % (11.5-14.5) Platelet Count 143 x10^3/uL (140-400) 119 x10^3/uL (140-400) Neutrophils (%) (Auto) 88 % (31-73) 90 % (31-73) Lymphocytes (%) (Auto) 7 % (24-48) 5 % (24-48) Monocytes (%) (Auto) 4 % (0-9) 5 % (0-9) Eosinophils (%) (Auto) 0 % (0-3) 0 % (0-3) Basophils (%) (Auto) 0 % (0-3) 0 % (0-3) Neutrophils # (Auto) 13.3 x10^3/uL (1.8-7.7) 11.8 x10^3/uL (1.8-7.7) Lymphocytes # (Auto) 1.0 x10^3/uL (1.0-4.8) 0.6 x10^3/uL (1.0-4.8) Monocytes # (Auto) 0.7 x10^3/uL (0.0-1.1) 0.6 x10^3/uL (0.0-1.1) Eosinophils # (Auto) 0.0 x10^3/uL (0.0-0.7) 0.0 x10^3/uL (0.0-0.7) Basophils # (Auto) 0.0 x10^3/uL (0.0-0.2) 0.0 x10^3/uL (0.0-0.2) Segmented Neutrophils % 88 % (35-66) Band Neutrophils % 6 % (0-9) Lymphocytes % 4 % (24-48) Monocytes % 2 % (0-10) Platelet Estimate Adequate (ADEQUATE) Target Cells Few Urine Collection Type Unknown Urine Color Nathalia Urine Clarity Turbid Urine pH 6.5 (<5.0-8.0) Urine Specific [place] 1.020 (1.000-1.030) Urine Protein 30 mg/dL (NEG-TRACE) Urine Glucose (UA) Negative mg/dL (NEG) Urine Ketones (Stick) 40 mg/dL (NEG) Urine Blood Negative (NEG) Urine Nitrite Positive (NEG) Urine Bilirubin Small (NEG) Urine Urobilinogen Dipstick 1.0 mg/dL (0.2 mg/dL) Urine Leukocyte Esterase Moderate (NEG) Urine RBC 0 /HPF (0-2) Urine WBC 11-20 /HPF (0-4) Urine Squamous Epithelial Cells Many /LPF Urine Bacteria Many /HPF (0-FEW) Urine Mucus Marked /LPF Urine Trichomonas Present Urine Test Negative (NEG) Sodium Level 131 mmol/L (136-145) 132 mmol/L (136-145) Potassium Level 3.5 mmol/L (3.5-5.1) 3.1 mmol/L (3.5-5.1) Chloride Level 95 mmol/L (98-107) 97 mmol/L (98-107) Carbon Dioxide Level 26 mmol/L (21-32) 22 mmol/L (21-32) Anion Gap 10 (6-14) 13 (6-14) Blood Urea Nitrogen 6 mg/dL (7-20) 6 mg/dL (7-20) Creatinine 0.7 mg/dL (0.6-1.0) 0.6 mg/dL (0.6-1.0) Estimated GFR (Cockcroft-Gault) 112.7 134.7 Glucose Level 116 mg/dL (70-99) 82 mg/dL (70-99) Calcium Level 9.1 mg/dL (8.5-10.1) 8.0 mg/dL (8.5-10.1) Phosphorus Level 3.7 mg/dL (2.6-4.7) Magnesium Level 1.6 mg/dL (1.8-2.4) Assessment and Plan Assessmemt and Plan Problems Medical Problems: (1) Left genital labial abscess Status: Acute (2) Sepsis Status: Acute (3) UTI (urinary tract infection) Status: Acute Comment Review of Relevant I have reviewed the following items barry (where applicable) has been applied. Medications: Current Medications Medications (Trade) Dose Ordered Sig/Sandra Route PRN Reason Start Time Stop Time Status Last Admin Dose Admin Iohexol (Omnipaque 300 Mg/ml) 75 ml 1X ONCE IV 04/24/20 16:15 04/24/20 16:17 DC 04/24/20 16:40 Piperacillin Sod/ Tazobactam Sod 4.5 gm/Sodium Chloride 100 ml @ 200 mls/hr 1X ONCE IV 04/24/20 18:00 04/24/20 18:29 DC 04/24/20 18:04 Vancomycin HCl (Vanco Per Pharmacy) 1 each PRN DAILY PRN MC SEE COMMENTS 04/24/20 18:00 04/24/20 19:25 Vancomycin HCl 1.25 gm/Sodium Chloride 250 ml @ 166.667 mls/hr 1X ONCE IV 04/24/20 18:00 04/24/20 19:29 DC 04/24/20 18:36 Ondansetron HCl (Zofran) 4 mg PRN Q6HRS PRN IVP NAUSEA/VOMITING 04/24/20 18:15 04/24/20 20:35 Sodium Chloride 1,000 ml @ 100 mls/hr Q10H IV 04/24/20 18:30 04/25/20 06:25 Enoxaparin Sodium (Lovenox 40mg Syringe) 40 mg Q24H SQ 04/24/20 21:00 04/24/20 21:55 Acetaminophen/ Hydrocodone Bitart (Lortab 5/325) 1 tab PRN Q4HRS PRN PO MODERATE-SEVERE PAIN 04/24/20 18:15 04/25/20 06:25 Morphine Sulfate (Morphine Sulfate) 1 mg PRN Q1HR PRN IV PAIN 04/24/20 18:15 04/25/20 10:13 Vancomycin HCl 750 mg/Sodium Chloride 250 ml @ 250 mls/hr Q12H IV 04/25/20 06:30 04/25/20 06:26 Lactobacillus Rhamnosus (Culturelle) 1 cap BID PO 04/24/20 21:00 04/24/20 21:54 Justifications for Admission UTI Indications Is NPO status required?: Yes Justification for admission: Patient may require to be NPO for greater 24hours making it medically necessary to manage patient as inpatient. Worse Clinical Findings?: Yes Justification for admission: Patient's worsening clinical findings as indicated (by a fever of & pain of) despite outpatient/observation treatment makes it imperative that patient is managed as an inpatient. Other Justification GAUTAM JONES MD Apr 25, 2020 10:40
--- NOTE | 2020-04-25 10:45 | CONS ---
DATE OF CONSULTATION: 04/25/2020 SUBJECTIVE: This patient is a 39-year-old -[place] female who is 7, para 7 and admitted to the hospital because of swelling in the vaginal area and also having drainage on the left side labia and no history of fever. COVID-19 is negative. She says she has got this just in the past 2 days and other than that, there is no previous history of infection as such. She is admitted to the hospital for IV fluids and IV antibiotics. PHYSICAL EXAMINATION: ABDOMEN: Feels soft. PELVIC: Shows there is a left side labial swelling, which is quite tender to palpate, but she is draining a lot of pus from that left side labial abscess. This could be a Bartholin abscess as well and since she is having pain, a bimanual exam could not be done at this time. IMPRESSION: Left side Bartholin abscess. RECOMMENDATION: Continue IV fluids, IV antibiotics. I would add clindamycin 300 mg IV q. 8 hours for 24 hours at least and if the patient feels better and the swelling comes down, she can go home with antibiotics and needs to be seen in the office in 2 weeks for further evaluation and removal of the Bartholin cyst as such. No surgery can be done at this time since patient is already draining from the area of the abscess. Thank you for giving me the opportunity to participate in the care and management of this patient. MARV LANGSTON MD DR: FABIANA/wendy JOB#: [id number] / [id number]
[2020-04-25 11:00] VITALS: BP 112/68
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
[2020-04-25] MEDS: PIPERACILLIN/TAZOBACTAM 3.375 GM in IV NORMAL SALINE 50ML 50 ML IV SCH ×3 (12:54→23:41)
[2020-04-25] MEDS ORDERED: CLINDAMYCIN 600MG PREMIX 50 ML IV SCH (14:00)
[2020-04-25] MEDS: VANCOMYCIN PER PHARMACY MC PRN (14:31)
[2020-04-25 15:00] VITALS: BP 128/62
[2020-04-25] MEDS: POTASSIUM CHLORIDE 10MEQ 100 ML IV SCH ×4 (15:16→18:30)
[2020-04-25] MEDS ORDERED: POTASSIUM BICARB 20 MEQ EFFERVESCENT TABLET. PO ONE (15:30)
[2020-04-25] MEDS ORDERED: MAGNESIUM SULFATE 1GM 100 ML IV ONE (15:30)
[2020-04-25 19:00] VITALS: BP 103/64
[2020-04-25] MEDS ORDERED: POTASSIUM CHLORIDE 20 MEQ TABLET.ER. PO ONE (19:15)
[2020-04-25] MEDS: metroNIDAZOLE 500 MG TABLET PO SCH (21:23)
[2020-04-25] MEDS: ENOXAPARIN 40 MG/0.4 ML SYRINGE. SQ SCH (21:24)
[2020-04-25 23:00] VITALS: BP 105/71
[2020-04-26 03:00] VITALS: BP 117/48
[2020-04-26] MEDS: PIPERACILLIN/TAZOBACTAM 3.375 GM in IV NORMAL SALINE 50ML 50 ML IV SCH (06:10)
[2020-04-26 07:28] VITALS: BP 116/64
[2020-04-26 07:56] LABS: VANC TR 4.3 mcg/mL (10.0-20.0)
[2020-04-26] MEDS: VANCOMYCIN PER PHARMACY MC PRN (08:07)
--- NOTE | 2020-04-26 08:07 | NUR ---
Pharmacy Vancomycin Dosing Note S: Consulted to monitor and dose vancomycin started 04/24/20. O: FLAQUITA CÁRDENAS is a 39 year old F with Cellulitis. Other Antibiotics: ZOSYN FLAGYL LABS: Last BUN: 6 Last Creatinine: 0.5 Creatinine Clearance: > 100 mL/min Last WBC: 13 Tmax (past 24 hours): 98.6 I/O: 900 / -- (3 voids) Drug Levels: Last Trough level: 4.3 on 04/26/20 at 0610 Last dose given 04/25/20 at 1814 Vancomycin Dosing: Dosing Weight: Actual Target Trough: 10-20 A: Based on: patient's trough level. P: 1. Begin Vancomycin 750 mg IV q8h. 2. Follow up Trough level as needed. 3. Pharmacy will continue to monitor, follow and adjust therapy as needed. PATIENCE HERNANDEZ RPH, 04/26/20 0807
--- NOTE | 2020-04-26 08:30 | PDOC ---
[employer] PROGRESS NOTE Date of Service DOS: DATE: 04/26/20 TIME: 08:27 Chief Complaint Chief Complaint Sepsis due to UTI and labial abscess, trichomonas and possible gram-negative organisms Left labial abscess Trichomonal infection Acute UTI Acute electrolyte derangement suggestive of volume depletionhyponatremia, hypochloremia, hypokalemia and hypomagnesemia Malpositioned IUD Polysubstance abuse Admit to medicine for further management Gynecology consult for management of labial abscess and IUD malpositioned Continue empiric IV antibiotics HIV testing Pending Chlamydia/gonorrhea PCR IV electrolyte replacement as needed ID consult Lovenox for DVT prophylaxis ADA diet Full code Discussed with RN and SALEEM Disposition pending HARVESTING CONTRACTOR evaluation Surrogate decision maker is the mother History of Present Illness History of Present Illness 04/27/2011 Patient seen and evaluated. Charts, labs, imaging reviewed. Afebrile, breathing on room air. She reports subjective improvement in her labial swelling. Per RESEARCH PROGRAMMER, no surgery at this time as abscess is already draining. Continue empiric antibiotics. Recommended follow-up in 2 weeks with RESEARCH PROGRAMMER for evaluation and removal of Bartholin cyst. Greater than 30 minutes spent managing discharge this patient. 04/25/2020 No acute events overnight. Afebrile. Patient does endorse some chills. Denies nausea or vomiting. No concerns from nursing. Patient's chart, labs, images were reviewed and discussed with RN 39-year-old female with past medical history of multiple pregnancies, one-time and's history of sickle cell trait who presents with vaginal pain and discomfort for 2 days. She has associated lower back pain and chills for 3 to 4 days and a cough for 1 month. Patient also endorses some sharp chest pain during coughing. Patient states that she is sexually active. She does complain of some dysuria and itching in the area. Denies shortness of breath, diarrhea, abdominal pain or palpitations. No history of sick contacts. Vitals/I&O Vitals/I&O: Vital Signs Date Time Temp Pulse Resp B/P (MAP) Pulse Ox O2 Delivery O2 Flow Rate FiO2 04/26/20 07:28 98.6 83 18 116/64 (81) 97 Room Air 98.6 I & O 04/25/20 04/25/20 04/26/20 15:00 23:00 07:00 Intake Total 300 ml 500 ml 100 ml Balance 300 ml 500 ml 100 ml Physical Exam General: Alert, Cooperative, No acute distress Heart: Regular rate Lungs: Clear, Crackles Abdomen: Normal bowel sounds Extremities: No clubbing Skin: No rashes, No breakdown Labs Labs: Laboratory Tests Test 04/26/20 06:10 Creatinine 0.5 mg/dL (0.6-1.0) Estimated GFR (Cockcroft-Gault) 166.2 Vancomycin Level Trough 4.3 mcg/mL (10.0-20.0) Vancomycin Last Dose Date 04/25/20 Vancomycin Last Dose Time 183 Assessment and Plan Assessmemt and Plan Problems Medical Problems: (1) Left genital labial abscess Status: Acute (2) Sepsis Status: Acute (3) UTI (urinary tract infection) Status: Acute Comment Review of Relevant I have reviewed the following items barry (where applicable) has been applied. Medications: Current Medications Medications (Trade) Dose Ordered Sig/Sandra Route PRN Reason Start Time Stop Time Status Last Admin Dose Admin Metronidazole (Flagyl) 500 mg Q12HR PO 04/25/20 21:00 04/25/20 21:23 Piperacillin Sod/ Tazobactam Sod 3.375 gm/Sodium Chloride 50 ml @ 100 mls/hr Q6HRS IV 04/25/20 12:00 04/26/20 06:10 Magnesium Sulfate/ Dextrose 100 ml @ 100 mls/hr 1X ONCE IV 04/25/20 15:30 04/25/20 16:29 DC 04/25/20 15:17 Potassium Bicarbonate (Potassium Effervescent Tablet) 40 meq 1X ONCE PO 04/25/20 15:30 04/25/20 15:31 DC 04/25/20 15:17 Potassium Chloride (Klor-Con) 40 meq 1X ONCE PO 04/25/20 19:15 04/25/20 19:16 DC 04/25/20 21:22 Justifications for Admission UTI Indications Is NPO status required?: Yes Justification for admission: Patient may require to be NPO for greater 24hours making it medically necessary to manage patient as inpatient. Worse Clinical Findings?: Yes Justification for admission: Patient's worsening clinical findings as indicated (by a fever of & pain of) despite outpatient/observation treatment makes it imperative that patient is managed as an inpatient. Other Justification ERICA PERALES MD Apr 26, 2020 08:30
[2020-04-26] MEDS: LACTOBACILLUS RHAMNOSUS GG 1 CAPSULE. PO SCH (08:38)
[2020-04-26] MEDS: metroNIDAZOLE 500 MG TABLET PO SCH (08:38)
[2020-04-26] MEDS ORDERED: VANCOMYCIN 750 MG in IV NORMAL SALINE 250ML 250 ML IV SCH (09:00)
--- NOTE | 2020-04-26 09:58 | PDOC ---
Infectious Disease Note Subjective Subjective pt is feeling better ROS ROS no n/v/d/sob Vital Sign Vital Signs Vital Signs Date Time Temp Pulse Resp B/P (MAP) Pulse Ox O2 Delivery O2 Flow Rate FiO2 04/26/20 07:28 98.6 83 18 116/64 (81) 97 Room Air 98.6 Physical Exam PHYSICAL EXAM GENERAL: Alert, oriented x 3 female, lying in bed comfortably, in no acute distress. HEENT: Normocephalic, atraumatic, anicteric. No thrush. NECK: Supple, no JVD. LUNGS: Clear bilaterally. HEART: S1, S2. No gallops or murmurs. ABDOMEN: Soft, nontender, nondistended, no rebound or guarding. GENITOURINARY: Left labial swelling with purulent drainage. NEUROLOGIC: Alert and oriented x 3, grossly nonfocal. PSYCHIATRIC: Cooperative, appropriate mood and affect. Labs Lab Laboratory Tests Test 04/26/20 06:10 Creatinine 0.5 mg/dL (0.6-1.0) Estimated GFR (Cockcroft-Gault) 166.2 Vancomycin Level Trough 4.3 mcg/mL (10.0-20.0) Vancomycin Last Dose Date 04/25/20 Vancomycin Last Dose Time 1830 Micro Microbiology 04/24/20 Urine Culture - Final, Complete Objective Assessment 1. Left labial abscess. 2. Leukocytosis. 3. Trichomoniasis. 4. Urinary tract infection. 5. History of smoking. 6. Thrombocytopenia, mild. Plan Plan of Care ok to d/c on po augmentin and doxy KAIA HEATON MD Apr 26, 2020 09:58
[2020-04-26] MEDS: IV NORMAL SALINE 1000ML BAG 1,000 ML IV SCH (10:30)
[2020-04-26 10:47] LABS: CREATININE 0.5 mg/dL (0.6-1.0); GFR 166.2; MAGNESIUM 1.9 mg/dL (1.8-2.4)
[2020-04-26] MEDS ORDERED: DOXY100T PO (10:53)
[2020-04-26] MEDS ORDERED: AMOX1TAB11 PO (10:53)
[2020-04-26 11:00] VITALS: BP 112/66
[2020-04-26] MEDS ORDERED: metroNIDAZOLE 500 MG TABLET PO ONE (11:00)
--- NOTE | 2020-04-26 11:06 | PDOC3 ---
Discharge Summary Visit Information Date of Admission: Apr 24, 2020 Date of Discharge: Apr 26, 2020 Final Diagnosis Problems Medical Problems: (1) Left genital labial abscess Status: Acute (2) Sepsis Status: Acute (3) UTI (urinary tract infection) Status: Acute Brief Hospital Course Allergies Allergies Coded Allergies Type Severity Reaction Last Updated Verified No Known Drug Allergies 09/04/19 No Vital Signs Vital Signs Date Time Temp Pulse Resp B/P (MAP) Pulse Ox O2 Delivery O2 Flow Rate FiO2 04/26/20 08:00 Room Air 04/26/20 07:28 98.6 83 18 116/64 (81) 97 98.6 Lab Results Laboratory Tests Test 04/24/20 15:15 04/24/20 15:50 04/25/20 06:15 04/26/20 06:10 White Blood Count 15.1 x10^3/uL (4.0-11.0) 13.0 x10^3/uL (4.0-11.0) Red Blood Count 4.60 x10^6/uL (3.50-5.40) 4.12 x10^6/uL (3.50-5.40) Hemoglobin 13.7 g/dL (12.0-15.5) 12.0 g/dL (12.0-15.5) Hematocrit 40.5 % (36.0-47.0) 36.1 % (36.0-47.0) Mean Corpuscular Volume 88 fL (79-100) 88 fL (79-100) Mean Corpuscular Hemoglobin 30 pg (25-35) 29 pg (25-35) Mean Corpuscular Hemoglobin Concent 34 g/dL (31-37) 33 g/dL (31-37) Red Cell Distribution Width 13.0 % (11.5-14.5) 12.7 % (11.5-14.5) Platelet Count 143 x10^3/uL (140-400) 119 x10^3/uL (140-400) Neutrophils (%) (Auto) 88 % (31-73) 90 % (31-73) Lymphocytes (%) (Auto) 7 % (24-48) 5 % (24-48) Monocytes (%) (Auto) 4 % (0-9) 5 % (0-9) Eosinophils (%) (Auto) 0 % (0-3) 0 % (0-3) Basophils (%) (Auto) 0 % (0-3) 0 % (0-3) Neutrophils # (Auto) 13.3 x10^3/uL (1.8-7.7) 11.8 x10^3/uL (1.8-7.7) Lymphocytes # (Auto) 1.0 x10^3/uL (1.0-4.8) 0.6 x10^3/uL (1.0-4.8) Monocytes # (Auto) 0.7 x10^3/uL (0.0-1.1) 0.6 x10^3/uL (0.0-1.1) Eosinophils # (Auto) 0.0 x10^3/uL (0.0-0.7) 0.0 x10^3/uL (0.0-0.7) Basophils # (Auto) 0.0 x10^3/uL (0.0-0.2) 0.0 x10^3/uL (0.0-0.2) Segmented Neutrophils % 88 % (35-66) Band Neutrophils % 6 % (0-9) Lymphocytes % 4 % (24-48) Monocytes % 2 % (0-10) Platelet Estimate Adequate (ADEQUATE) Target Cells Few Urine Collection Type Unknown Urine Color Nathalia Urine Clarity Turbid Urine pH 6.5 (<5.0-8.0) Urine Specific [place] 1.020 (1.000-1.030) Urine Protein 30 mg/dL (NEG-TRACE) Urine Glucose (UA) Negative mg/dL (NEG) Urine Ketones (Stick) 40 mg/dL (NEG) Urine Blood Negative (NEG) Urine Nitrite Positive (NEG) Urine Bilirubin Small (NEG) Urine Urobilinogen Dipstick 1.0 mg/dL (0.2 mg/dL) Urine Leukocyte Esterase Moderate (NEG) Urine RBC 0 /HPF (0-2) Urine WBC 11-20 /HPF (0-4) Urine Squamous Epithelial Cells Many /LPF Urine Bacteria Many /HPF (0-FEW) Urine Mucus Marked /LPF Urine Trichomonas Present Urine Test Negative (NEG) Sodium Level 131 mmol/L (136-145) 132 mmol/L (136-145) 137 mmol/L (136-145) Potassium Level 3.5 mmol/L (3.5-5.1) 3.1 mmol/L (3.5-5.1) 4.0 mmol/L (3.5-5.1) Chloride Level 95 mmol/L (98-107) 97 mmol/L (98-107) 104 mmol/L (98-107) Carbon Dioxide Level 26 mmol/L (21-32) 22 mmol/L (21-32) 23 mmol/L (21-32) Anion Gap 10 (6-14) 13 (6-14) 10 (6-14) Blood Urea Nitrogen 6 mg/dL (7-20) 6 mg/dL (7-20) 3 mg/dL (7-20) Creatinine 0.7 mg/dL (0.6-1.0) 0.6 mg/dL (0.6-1.0) 0.5 mg/dL (0.6-1.0) Estimated GFR (Cockcroft-Gault) 112.7 134.7 166.2 Glucose Level 116 mg/dL (70-99) 82 mg/dL (70-99) 94 mg/dL (70-99) Calcium Level 9.1 mg/dL (8.5-10.1) 8.0 mg/dL (8.5-10.1) 8.0 mg/dL (8.5-10.1) HIV (1&2) Antibody Screen Nonreactive (Nonreactive) Phosphorus Level 3.7 mg/dL (2.6-4.7) Magnesium Level 1.6 mg/dL (1.8-2.4) 1.9 mg/dL (1.8-2.4) Vancomycin Level Trough 4.3 mcg/mL (10.0-20.0) Vancomycin Last Dose Date 04/25/20 Vancomycin Last Dose Time 1830 Laboratory Tests Test 04/26/20 06:10 Sodium Level 137 mmol/L (136-145) Potassium Level 4.0 mmol/L (3.5-5.1) Chloride Level 104 mmol/L (98-107) Carbon Dioxide Level 23 mmol/L (21-32) Anion Gap 10 (6-14) Blood Urea Nitrogen 3 mg/dL (7-20) Creatinine 0.5 mg/dL (0.6-1.0) Estimated GFR (Cockcroft-Gault) 166.2 Glucose Level 94 mg/dL (70-99) Calcium Level 8.0 mg/dL (8.5-10.1) Magnesium Level 1.9 mg/dL (1.8-2.4) Vancomycin Level Trough 4.3 mcg/mL (10.0-20.0) Vancomycin Last Dose Date 04/25/20 Vancomycin Last Dose Time 1830 Brief Hospital Course Ms. Nassar is a 39 old female who presented with left labial abscess with c ellulitis. Consult was placed to ID and [facility]. She was treated with IV fluids and antibiotics. Per [facility], since abscess is already draining no need for surgery. Patient noted some improvement in her swelling. She may discharge on oral antibiotics with follow-up in [facility] office in 2 weeks for further evaluation. Discharge Information Condition at Discharge: Improved Follow Up: Weeks Disposition/Orders: D/C to Home Scheduled PRN Acetaminophen (Tylenol) 325 Mg Tablet, 650 MG PO PRN Q4HRS PRN for MILD PAIN / TEMP > 100.3'F, (Reported) Entered as Reported by: KELSY LLOYD on 04/24/202216 Last Action: New Order on 04/24/202216 by KELSY LLOYD Ibuprofen (Ibuprofen) 400 Mg Tablet, 400 MG PO PRN Q4-6HRS PRN for INFLAMMATION, (Reported) Entered as Reported by: KELSY LLOYD on 04/24/202216 Last Action: New Order on 04/24/202216 by KELSY LLOYD Naproxen Sodium (Aleve) 220 Mg Tablet, 220 MG PO PRN BID PRN for PAIN, (Reported) Entered as Reported by: KELSY LLOYD on 04/24/202216 Last Action: New Order on 04/24/202216 by KELSY LLOYD Justicifation of Admission Dx: Justifications for Admission: Justification of Admission Dx: N/A ERICA PERALES MD Apr 26, 2020 11:06
[2020-04-26 15:00] VITALS: BP 123/85
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
[2020-04-26] MEDS ORDERED: AMOXICILLIN/K CLAV 875/125MG TABLET. PO SCH (21:00)
[2020-04-26] MEDS ORDERED: DOXYCYCLINE HYCLATE 100 MG TABLET PO SCH (21:00)
== END 2020-04-26 16:08 | disposition home or self-care (01) | DRG 872 ==
LOC: ER 14:21 → ED HOLD 19:13 → 4 NORTH 20:59
PROVIDERS: ADMIT Internal Medicine; ATTEND Internal Medicine
DX: A41.89 Other specified sepsis (principal); N75.1 Abscess of Bartholin's gland; N76.4 Abscess of vulva; E87.1 Hypo-osmolality and hyponatremia; A59.9 Trichomoniasis, unspecified; D57.3 Sickle-cell trait; D69.6 Thrombocytopenia, unspecified; F17.200 Nicotine dependence, unspecified, uncomplicated; I10 Essential (primary) hypertension; N30.90 Cystitis, unspecified without hematuria; N76.2 Acute vulvitis; Z82.49 Family history of ischemic heart disease and other diseases of the circulatory system; Z20.822 Contact with and (suspected) exposure to COVID-19
CPT/HCPCS: 36415; 71045; 72193; 80048; 80202; 81001; 81025; 83735; 84100; 85007; 85025; 86703; 87086; 96365; 96368; 96375; 99406; J1650; J2270; J2405; J2543; J3370; J3475; J7030; J7050; Q9967; U0003; 99285-25; G0378

== ENCOUNTER 2021-01-08 04:12 | Inpatient (IN) | payer SELFPAY ==
[2021-01-08] VITALS (8 sets, daily range): BP systolic 145–204; BP diastolic 75–101
[~2021-01-08] VITALS: Ht 157.5 cm; Wt 44.7 kg
[~2021-01-08 04:12] MED LIST changes: +ACET325T9 PO; +AMOX1TAB11 PO; +DOXY100T PO; -MORPHINE SULFATE 4 MG/ML VIAL. IV PRN; +NAPR220T70 PO; +POTA-121 PO; -POTA20TA4 PO
[2021-01-08] MEDS ORDERED: oxyCODONE IR 5 MG TABLET PO ONE (04:30)
[2021-01-08] MEDS ORDERED: ACETAMINOPHEN 500 MG TABLET PO ONE (04:30)
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
--- NOTE | 2021-01-08 05:13 | RAD ---
XR KNEE 3 VIEWS_RT Clinical Indication: Reason: knee pain, effusion, felt "pop" when she kicked a door / Spl. Instructio ns: / History: Comparison: None. Findings: There is acute traumatic mildly comminuted fracture of the medial tibial plateau. Longitudinal and tr ansverse fracture lines are identified. There is acute the patella is in anatomic position. Traumatic nondisplaced fracture of the proximal fibular head. There is a moderate lipohemarthrosis of the knee joint. The mineralization is normal. IMPRESSION: 1. Acute traumatic mildly comminuted fracture of the medial tibial plateau. 2. Acute traumatic nondisplaced fracture of the proximal fibular head. 3. Moderate lipohemarthrosis. Electronically signed by: Tristan Paz MD (01/08/2021 5:10 AM) [facility]
--- NOTE | 2021-01-08 06:34 | RAD ---
PQRS Compliance Statement: One or more of the following individualized dose reduction techniques were utilized for this examinat ion: 1. Automated exposure control 2. Adjustment of the mA and/or kV according to patient size 3. Use of iterative reconstruction technique CT LOWER RIGHT EXTREMITY WITHOUT CONTRAST Clinical Indication: Reason: tibial plateau fracture / Spl. Instructions: / History: Comparison: Right knee radiographs, earlier same day. TECHNIQUE: Helical CT imaging of the right knee is performed without IV contrast. Multiplanar reforma ts. Findings: There is acute traumatic comminuted fracture of the medial and lateral tibial plateau. There is a lu gitudinal fracture line of the medial tibial plateau anteriorly. There is a transverse fracture line anteriorly. The fracture line nearly reaches the lateral cortex of the tibia, axial images 89 and 97. There is subtle nondisplaced transverse fracture of the proximal fibular head, coronal image 49. There is moderate lipohemarthrosis. The patella is in anatomic position. The extensor mechanism is pr obably intact. No acute fracture of the distal femur is identified. Question old subchondral fracture of the lateral femoral condyle. On housing quality standard inspector image an intramedullary adria of the left tibia is noted. IMPRESSION: 1. There is acute traumatic comminuted fracture of the right medial tibial plateau. Transverse fract ure line extends to involve the lateral tibial plateau. 2. There is subtle nondisplaced fracture of the proximal fibular head. 3. Moderate lipohemarthrosis. Electronically signed by: Tristan Paz MD (01/08/2021 6:31 AM) [facility]
[2021-01-08] MEDS: MORPHINE SULFATE 4 MG/ML INJ. IVP PRN ×2 (06:49→08:39)
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
[2021-01-08] MEDS ORDERED: SENNOSIDES 8.6 MG TABLET PO PRN (11:30)
[2021-01-08] MEDS ORDERED: DOCUSATE SODIUM 100 MG CAPSULE. PO PRN (11:30)
[2021-01-08] MEDS ORDERED: MORPHINE SULFATE 2 MG/ML INJ. IV PRN (11:30)
[2021-01-08] MEDS ORDERED: ACETAMINOPHEN 325 MG TABLET. PO PRN (11:30)
[2021-01-08] MEDS ORDERED: LORazepam 0.5 MG TABLET PO PRN (11:30)
[2021-01-08] MEDS ORDERED: MORPHINE SULFATE 2 MG/ML INJ. IVP PRN ×2 (11:30→13:15)
[2021-01-08] MEDS ORDERED: ZOLPIDEM 5 MG TABLET. PO PRN (11:30)
[2021-01-08] MEDS ORDERED: PROCHLORPERAZINE 10 MG/2 ML VIAL. IV PRN (11:30)
[2021-01-08] MEDS ORDERED: DEXTROSE 50% 25 GM / 50ML DISP.SYRIN. IV PRN (11:30)
[2021-01-08] MEDS ORDERED: ONDANSETRON PF 4 MG/2 ML VIAL. IVP PRN (11:30)
[2021-01-08] MEDS ORDERED: PROCHLORPERAZINE 10 MG/2 ML VIAL. IVP PRN (13:15)
[2021-01-08] MEDS ORDERED: IV RINGERS,LACTATED 1000ML 1,000 ML IV SCH (13:15)
[2021-01-08] MEDS ORDERED: HYDROmorphone 2 MG/ML VIAL IVP PRN (13:15)
[2021-01-08] MEDS ORDERED: fentaNYL PF VIAL 100 MCG/2 ML VIAL IVP PRN ×2 (13:15)
[2021-01-08] MEDS: NICOTINE 14MG PATCH. TD SCH (13:23)
[2021-01-08] MEDS ORDERED: fentaNYL PF VIAL 250 MCG/5 ML VIAL ONE (13:41)
[2021-01-08] MEDS ORDERED: ceFAZolin SODIUM IV Push 1 GM VIAL. IVP ONE (13:42)
[2021-01-08] MEDS ORDERED: BUPIVACAINE MPF 0.5% 30 ML VIAL. ONE (14:23)
--- NOTE | 2021-01-08 14:40 | PDOC2 ---
CONSULT Date of Consult Date of Consult DATE: 01/08/21 TIME: 14:36 Identification/Chief Complaint Chief Complaint Displaced right tibial plateau fracture. Source Source: Chart review, Patient History of Present Illness Reason for Visit: Fela is a 40-year-old female, admitted through the ER, for right knee pain. She tried to kick a door and had immediate pain and felt a pop in her knee. Radiographs and a CT scan reveal a displaced medial tibial plateau fracture. She denies any prior history of injury to her right leg. She is complaining of significant pain. Past Medical History Cardiovascular: HTN Pulmonary: COPD, Other GI: GERD Psych: Addictions Renal/: No pertinent hx, UTI Family History Family History: Hypertension Social History ALCOHOL: social Drugs: Cocaine, Marijuana Current Problem List Problem List Problems Medical Problems: (1) Fracture of head of fibula Status: Acute (2) Lipohemarthrosis Status: Acute (3) Tibial plateau fracture, right Status: Acute Current Medications Current Medications Current Medications Oxycodone HCl (Roxicodone) 5 mg 1X ONCE PO Last administered on 01/08/21at 04:30; Start 01/08/21 at 04:30; Stop 01/08/21 at 04:32; Status DC Acetaminophen (Tylenol) 1,000 mg 1X ONCE PO Last administered on 01/08/21at 04:31; Start 01/08/21 at 04:30; Stop 01/08/21 at 04:32; Status DC Lorazepam (Ativan Inj) 2 mg PRN Q1HR PRN IV For CIWA 8-14; Start 01/08/21 at 05:00 Morphine Sulfate (Morphine Sulfate) 4 mg PRN Q2HR PRN IVP PAIN Last administered on 01/08/21at 08:39; Start 01/08/21 at 05:45; Stop 01/09/21 at 05 :44 Sennosides (Senna) 17.2 mg PRN BID PRN PO CONSTIPATION; Start 01/08/21 at 11:30 Docusate Sodium (Colace) 100 mg PRN DAILY PRN PO HARD STOOLS; Start 01/08/21 at 11:30 Ondansetron HCl (Zofran) 4 mg PRN Q6HRS PRN IVP NAUSEA/VOMITING; Start 01/08/21 at 11:30 Dextrose (Dextrose 50%-Water Syringe) 12.5 gm PRN Q15MIN PRN IV SEE COMMENTS; Start 01/08/21 at 11:30 Acetaminophen (Tylenol) 650 mg PRN Q4HRS PRN PO TEMP OVER 100.4F OR MILD PAIN; Start 01/08/21 at 11:30 Lorazepam (Ativan) 0.5 mg PRN Q6HRS PRN PO ANXIETY / AGITATION; Start 01/08/21 at 11:30 Lorazepam (Ativan Inj) 0.25 mg PRN Q4HRS PRN IV ANXIETY / AGITATION; Start 01/08/21 at 11:30 Oxycodone/ Acetaminophen (Percocet 5/325) 1 tab PRN Q4HRS PRN PO MILD PAIN, 1ST CHOICE; Start 01/08/21 at 11:30 Oxycodone/ Acetaminophen (Percocet 5/325) 2 tab PRN Q4HRS PRN PO MODERATE PAIN, SEVERE PAIN; Start 01/08/21 at 11:30 Morphine Sulfate (Morphine Sulfate) 1 mg PRN Q1HR PRN IV PAIN-SEE COMMENTS; Start 01/08/21 at 11:30 Morphine Sulfate (Morphine Sulfate) 2 mg PRN Q2HR PRN IVP SEVERE PAIN 7-10; Start 01/08/21 at 11:30; Stop 01/09/21 at 11:29 Prochlorperazine Edisylate (Compazine) 10 mg PRN Q6HRS PRN IV NAUSEA/VOMITING; Start 01/08/21 at 11:30 Zolpidem Tartrate (Ambien) 2.5 mg PRN QHS PRN PO INSOMNIA; Start 01/08/21 at 11:30 Nicotine (Nicoderm Cq 14mg) 1 patch DAILY TD Last administered on 01/08/21at 13:23; Start 01/08/21 at 13:15 Fentanyl Citrate (Fentanyl 2ml Vial) 25 mcg PRN Q5MIN PRN IVP MILD PAIN 1-3; Start 01/08/21 at 13:15; Stop 01/08/21 at 20:00 Fentanyl Citrate (Fentanyl 2ml Vial) 50 mcg PRN Q5MIN PRN IVP MODERATE PAIN 4- 6; Start 01/08/21 at 13:15; Stop 01/08/21 at 20:00 Morphine Sulfate (Morphine Sulfate) 1 mg PRN Q10MIN PRN IVP SEVERE PAIN 7-10; Start 01/08/21 at 13:15; Stop 01/08/21 at 20:00 Ringer's Solution 1,000 ml @ 30 mls/hr Q24H IV ; Start 01/08/21 at 13:15; Stop 01/09/21 at 01:14 Hydromorphone HCl (Dilaudid) 0.5 mg PRN Q10MIN PRN IVP SEVERE PAIN 7-10, 2nd CHOICE; Start 01/08/21 at 13:15; Stop 01/08/21 at 20:00 Prochlorperazine Edisylate (Compazine) 5 mg PACU PRN PRN IVP NAUSEA, MRX1; Start 01/08/21 at 13:15; Stop 01/08/21 at 20:00 Fentanyl Citrate (Fentanyl 5ml Vial) 250 mcg STK-MED ONCE .ROUTE ; Start 01/08/21 at 13:41; Stop 01/08/21 at 13:41; Status DC Cefazolin Sodium (Ancef) 1 gm STK-MED ONCE IVP ; Start 01/08/21 at 13:42; Stop 01/08/21 at 13:43; Status DC Bupivacaine HCl (Sensorcaine Mpf 0.5%) 30 ml STK-MED ONCE .ROUTE ; Start 01/08/21 at 14:23; Stop 01/08/21 at 14:23; Status DC Active Scripts Active Doxycycline Hyclate 100 Mg Tablet 100 Mg PO BID 10 Days Amox Tr-K Clv 875-125 Mg Tab (Amoxicillin/Potassium Clav) 1 Each Tablet 1 Tab PO BID 10 Days Reported Tylenol (Acetaminophen) 325 Mg Tablet 650 Mg PO PRN Q4HRS PRN Allergies Allergies: Coded Allergies: No Known Drug Allergies (Unverified , 09/04/19) ROS Musculoskeletal: Yes Gait Disturbance, Yes Joint Pain, Yes Joint Stiffness, Yes Muscle Pain Physical Exam General: Alert, Cooperative MUSCULOSKELETAL: Abnormal exam of right (Intact skin with mild swelling. Significant tenderness. Limited range of motion secondary to pain. Gross motor and distal neurovascular examination are intact.) Vitals VITALS Vital Signs Date Time Temp Pulse Resp B/P (MAP) Pulse Ox O2 Delivery O2 Flow Rate FiO2 01/08/21 11:00 98.3 83 18 151/75 (100) 97 Room Air 98.3 Labs Labs Laboratory Tests Test 01/08/21 05:55 01/08/21 06:00 Bedside Urine HCG, Qualitative Hcg negative (Negative) SARS-CoV-2 RNA (AMINTA) Negative (Negative) SARS-CoV-2 Antigen (Rapid) Negative (NEGATIVE) Laboratory Tests Test 01/08/21 05:55 01/08/21 06:00 Bedside Urine HCG, Qualitative Hcg negative (Negative) SARS-CoV-2 RNA (AMINTA) Negative (Negative) SARS-CoV-2 Antigen (Rapid) Negative (NEGATIVE) Images Images Radiographs and a CT scan of the right knee reveal a displaced medial tibial plateau fracture. There is more than 5 mm of articular displacement at the joint surface. Mechanical axis is maintained. Assessment/Plan Assessment/Plan 40-year-old female with displaced right medial tibial plateau fracture. We discussed the indications for surgery being more than 5 mm of articular displacement. We also reviewed the risk, benefits, and alternatives to surgery. She demonstrated understanding and wished to proceed with recommended tibial plateau open reduction internal fixation. Remain n.p.o. Surgical consent was obtained. Patient was scheduled for surgery today. CHRISTIAN TAN DO Jan 08, 2021 14:40
--- NOTE | 2021-01-08 14:54 | PDOC4 ---
OPERATIVE NOTE: Date of surgery: 01/08/2021 Preoperative diagnosis: Displaced right medial tibial plateau fracture. Postoperative diagnosis: Same. Operative procedure: Right knee medial tibial plateau fracture ORIF. Surgeon: Christian Tan DO/SUGAR Assistants: None Anesthesia: General Antibiotics: Ancef Orthopedic implants: -Synthes 4.0 mm partially-threaded cannulated screws. Operative indications: Patient is a pleasant 40-year-old female who suffered an injury to her right knee after kicking a door. Radiographs and a CT scan revealed a displaced medial tibial plateau fracture. We discussed the in dications, risks, benefits, and alternatives to surgical intervention. Patient and family demonstrate understanding and wished to proceed with recommended surgery. Operative technique: The patient was met in the preoperative holding area and again the risk, benefits, and alternatives to surgery were reviewed with the patient. She again demonstrated understanding and wished to proceed with surgery. The operative extremity was then initialed after verifying correct surgical site with patient. Patient was then taken back to the operative suite. She was administered a general anesthetic by the department of anesthesiology. She was placed on the operative table in supine position and was given 1 g of Ancef preoperatively. A timeout protocol was performed to verify correct surgical site and procedure. All teams were in agreement. The right lower extremity was then sterilely prepped and draped in the usual fashion. Surgery began by utilizing fluoroscopy to plan surgical incisions and screw placement. A 10 blade scalpel was used to make 3 percutaneous incisions. Hemostat was used to spread down to the anterior tibia. Under fluoroscopic guidance, 3 threaded guidewires were placed across the fracture site. Their position was checked utilizing fluoroscopy. Length measurements were then taken. 3 partially-threaded 4.0 mm cannulated screws were then placed from anterior to posterior direction across the fracture site closing down the fracture gap. This was observed fluoroscopically. Final fluoroscopic images in the AP and lateral planes were taken and saved for later review. The wounds were thoroughly irrigated with normal saline. Skin was closed with subcuticular 2-0 Vicryl and coreen. Sterile dressings were then applied and the patient was awakened from general anesthesia. He was then transferred to the postoperative gurney in stable condition. Estimated blood loss: 10 mL. Complications: None. Specimens sent to pathology: None. Disposition: PACU and post surgical floor. Condition: Stable. CHRISTIAN TAN DO Jan 08, 2021 14:54
[2021-01-08] MEDS ORDERED: PROPOFOL 10 MG/ML (20ML) VIAL. IV ONE (15:11)
[2021-01-08] MEDS ORDERED: ONDANSETRON PF 4 MG/2 ML VIAL. ONE (15:11)
[2021-01-08] MEDS ORDERED: SEVOFLURANE 31 TO 60 MINUTES. IH ONE (15:11)
[2021-01-08] MEDS ORDERED: DEXAMETHASONE SOD PHOS 4 MG/ML VIAL ONE (15:11)
[2021-01-08] MEDS ORDERED: LIDOCAINE 2% PF 5 ML VIAL. ONE (15:11)
[2021-01-08] MEDS ORDERED: hydrALAZINE 20 MG/ML VIAL. IVP PRN (17:15)
[2021-01-08] MEDS: oxyCODONE/APAP 5/325 1 TAB TABLET PO PRN (18:52)
[2021-01-09 03:00] VITALS: BP 143/73
[2021-01-09] MEDS: oxyCODONE/APAP 5/325 1 TAB TABLET PO PRN ×3 (04:27→17:24)
[2021-01-09 07:00] VITALS: BP 128/69
[2021-01-09 07:19] LABS: BASO % 0 % (0-3); EOS % 0 % (0-3); HEMOGLOBIN 11.3 g/dL (12.0-15.5); LYMPH # 0.8 x10^3/uL (1.0-4.8); LYMPH % 12 % (24-48); MEAN CORPUSCULAR HEMOGLOBIN 30 pg (25-35); MEAN CORPUSCULAR HGB CONC 33 g/dL (31-37); MEAN CORPUSCULAR VOLUME 90 fL (79-100); MONO % 15 % (0-9); NEUT # 4.7 x10^3/uL (1.8-7.7); NEUT % 73 % (31-73); PLATELET COUNT 91 x10^3/uL (140-400); RED BLOOD COUNT 3.77 x10^6/uL (3.50-5.40); RED CELL DISTRIBUTION WIDTH 13.2 % (11.5-14.5); WHITE BLOOD COUNT 6.5 x10^3/uL (4.0-11.0)
[2021-01-09 08:03] LABS: CALCIUM 8.7 mg/dL (8.5-10.1); CREATININE 0.6 mg/dL (0.6-1.0); MAGNESIUM 1.9 mg/dL (1.8-2.4); PHOSPHORUS 3.2 mg/dL (2.6-4.7); POTASSIUM 4.1 mmol/L (3.5-5.1)
[2021-01-09 08:36] LABS: PLT ESTIMATE DECREASED (ADEQUATE)
[2021-01-09] MEDS: NICOTINE 14MG PATCH. TD SCH (09:13)
[2021-01-09 11:00] VITALS: BP 139/70
--- NOTE | 2021-01-09 11:32 | PDOC ---
[facility] PROGRESS NOTE Date of Service DOS: DATE: 01/09/21 TIME: 11:30 Chief Complaint Chief Complaint Acute traumatic mildly comminuted fracture of the medial tibial plateau status post ORIF on 01/09/2021 Acute traumatic nondisplaced fracture of the proximal fibular head. Moderate lipohemarthrosis. Admit to hospitalist service for further management Pending Ortho evaluation IV n.p.o. pain control PT OT modalities Bedrest Defer to Ortho for DVT prophylaxis N.p.o. for now CODE STATUS full code Discussed with RN and SALEEM Disposition anticipate discharge in next 24 hours DPOA: Sister Antonia Nassar History of Present Illness History of Present Illness 40 year old female who presents with right knee pain. Started approximately 3 hours ago when she attempted to kick down a door. States that she felt the pop sensation immediately and had immediate pain. Has had increased swelling around her knee since then and increasing pain. Pain much worse with range of motion. Called EMS for transport to the emergency department. 01/09/2021 No acute events overnight. Patient seen examined bedside. Patient tolerated procedure well. Pain is well controlled. Patient was hypertensive requiring some hypertensives and was started on amlodipine 10 mg daily. Nausea vomiting yesterday requiring one-time dose of IV Zofran. Pending PT OT evaluation. Patient's chart, labs, images were reviewed and discussed with RN Vitals/I&O Vitals/I&O: Vital Signs Date Time Temp Pulse Resp B/P (MAP) Pulse Ox O2 Delivery O2 Flow Rate FiO2 01/09/21 11:12 92 Room Air 6.0 01/09/21 09:06 81 128/69 01/09/21 07:00 98.3 16 98.3 I & O 01/08/21 01/08/21 01/09/21 15:00 23:00 07:00 Intake Total 800 ml 200 ml Output Total 10 ml Balance 790 ml 200 ml Physical Exam General: Alert, Cooperative Lungs: Clear, Crackles Extremities: Other (Right lower extremity brace intact. No active bleeding or swelling.) Labs Labs: Laboratory Tests Test 01/09/21 06:50 White Blood Count 6.5 x10^3/uL (4.0-11.0) Red Blood Count 3.77 x10^6/uL (3.50-5.40) Hemoglobin 11.3 g/dL (12.0-15.5) Hematocrit 34.0 % (36.0-47.0) Mean Corpuscular Volume 90 fL (79-100) Mean Corpuscular Hemoglobin 30 pg (25-35) Mean Corpuscular Hemoglobin Concent 33 g/dL (31-37) Red Cell Distribution Width 13.2 % (11.5-14.5) Platelet Count 91 x10^3/uL (140-400) Neutrophils (%) (Auto) 73 % (31-73) Lymphocytes (%) (Auto) 12 % (24-48) Monocytes (%) (Auto) 15 % (0-9) Eosinophils (%) (Auto) 0 % (0-3) Basophils (%) (Auto) 0 % (0-3) Neutrophils # (Auto) 4.7 x10^3/uL (1.8-7.7) Lymphocytes # (Auto) 0.8 x10^3/uL (1.0-4.8) Monocytes # (Auto) 1.0 x10^3/uL (0.0-1.1) Eosinophils # (Auto) 0.0 x10^3/uL (0.0-0.7) Basophils # (Auto) 0.0 x10^3/uL (0.0-0.2) Platelet Estimate Decreased (ADEQUATE) Large Platelets Few Giant Platelets Occ Sodium Level 130 mmol/L (136-145) Potassium Level 4.1 mmol/L (3.5-5.1) Chloride Level 91 mmol/L (98-107) Carbon Dioxide Level 26 mmol/L (21-32) Anion Gap 13 (6-14) Blood Urea Nitrogen 11 mg/dL (7-20) Creatinine 0.6 mg/dL (0.6-1.0) Estimated GFR (Cockcroft-Gault) 134.0 Glucose Level 159 mg/dL (70-99) Calcium Level 8.7 mg/dL (8.5-10.1) Phosphorus Level 3.2 mg/dL (2.6-4.7) Magnesium Level 1.9 mg/dL (1.8-2.4) Assessment and Plan Assessmemt and Plan Problems Medical Problems: (1) Fracture of head of fibula Status: Acute (2) Lipohemarthrosis Status: Acute (3) Tibial plateau fracture, right Status: Acute Comment Review of Relevant I have reviewed the following items barry (where applicable) has been applied. Medications: Current Medications Medications (Trade) Dose Ordered Sig/Sandra Route PRN Reason Start Time Stop Time Status Last Admin Dose Admin Nicotine (Nicoderm Cq 14mg) 1 patch DAILY TD 01/08/21 13:15 01/09/21 09:13 Ringer's Solution 1,000 ml @ 30 mls/hr Q24H IV 01/08/21 13:15 01/09/21 01:14 DC 01/08/21 13:00 Bupivacaine HCl (Sensorcaine Mpf 0.5%) 30 ml STK-MED ONCE .ROUTE 01/08/21 14:23 01/08/21 14:23 DC 01/08/21 14:11 Amlodipine Besylate (Norvasc) 10 mg DAILY PO 01/08/21 17:15 01/09/21 09:06 Justifications for Admission Other Justification Right tibial fracture GAUTAM JONES MD Jan 09, 2021 11:32
--- NOTE | 2021-01-09 13:06 | PDOC ---
PROGRESS NOTES Date of Service DATE: 01/09/21 TIME: 13:04 Subjective Subjective Problems overnight: No acute issues overnight. Pain is improving. Was able to get up with therapy today. Now has a front wheel walker and crutches for ambulation assistance. Objective Vital Signs Vital Signs Date Time Temp Pulse Resp B/P (MAP) Pulse Ox O2 Delivery O2 Flow Rate FiO2 01/09/21 11:12 92 Room Air 6.0 01/09/21 11:00 98.3 78 18 139/70 (93) 98.3 Physical Exam Dressings are clean and dry. Knee immobilizer in place. Minimal swelling. Distal neurovascular examination is intact. Labs Laboratory Tests Test 01/08/21 05:55 01/08/21 06:00 01/09/21 06:50 Bedside Urine HCG, Qualitative Hcg negative (Negative) SARS-CoV-2 RNA (AMINTA) Negative (Negative) SARS-CoV-2 Antigen (Rapid) Negative (NEGATIVE) White Blood Count 6.5 x10^3/uL (4.0-11.0) Red Blood Count 3.77 x10^6/uL (3.50-5.40) Hemoglobin 11.3 g/dL (12.0-15.5) Hematocrit 34.0 % (36.0-47.0) Mean Corpuscular Volume 90 fL (79-100) Mean Corpuscular Hemoglobin 30 pg (25-35) Mean Corpuscular Hemoglobin Concent 33 g/dL (31-37) Red Cell Distribution Width 13.2 % (11.5-14.5) Platelet Count 91 x10^3/uL (140-400) Neutrophils (%) (Auto) 73 % (31-73) Lymphocytes (%) (Auto) 12 % (24-48) Monocytes (%) (Auto) 15 % (0-9) Eosinophils (%) (Auto) 0 % (0-3) Basophils (%) (Auto) 0 % (0-3) Neutrophils # (Auto) 4.7 x10^3/uL (1.8-7.7) Lymphocytes # (Auto) 0.8 x10^3/uL (1.0-4.8) Monocytes # (Auto) 1.0 x10^3/uL (0.0-1.1) Eosinophils # (Auto) 0.0 x10^3/uL (0.0-0.7) Basophils # (Auto) 0.0 x10^3/uL (0.0-0.2) Platelet Estimate Decreased (ADEQUATE) Large Platelets Few Giant Platelets Occ Sodium Level 130 mmol/L (136-145) Potassium Level 4.1 mmol/L (3.5-5.1) Chloride Level 91 mmol/L (98-107) Carbon Dioxide Level 26 mmol/L (21-32) Anion Gap 13 (6-14) Blood Urea Nitrogen 11 mg/dL (7-20) Creatinine 0.6 mg/dL (0.6-1.0) Estimated GFR (Cockcroft-Gault) 134.0 Glucose Level 159 mg/dL (70-99) Calcium Level 8.7 mg/dL (8.5-10.1) Phosphorus Level 3.2 mg/dL (2.6-4.7) Magnesium Level 1.9 mg/dL (1.8-2.4) Laboratory Tests Test 01/09/21 06:50 White Blood Count 6.5 x10^3/uL (4.0-11.0) Red Blood Count 3.77 x10^6/uL (3.50-5.40) Hemoglobin 11.3 g/dL (12.0-15.5) Hematocrit 34.0 % (36.0-47.0) Mean Corpuscular Volume 90 fL (79-100) Mean Corpuscular Hemoglobin 30 pg (25-35) Mean Corpuscular Hemoglobin Concent 33 g/dL (31-37) Red Cell Distribution Width 13.2 % (11.5-14.5) Platelet Count 91 x10^3/uL (140-400) Neutrophils (%) (Auto) 73 % (31-73) Lymphocytes (%) (Auto) 12 % (24-48) Monocytes (%) (Auto) 15 % (0-9) Eosinophils (%) (Auto) 0 % (0-3) Basophils (%) (Auto) 0 % (0-3) Neutrophils # (Auto) 4.7 x10^3/uL (1.8-7.7) Lymphocytes # (Auto) 0.8 x10^3/uL (1.0-4.8) Monocytes # (Auto) 1.0 x10^3/uL (0.0-1.1) Eosinophils # (Auto) 0.0 x10^3/uL (0.0-0.7) Basophils # (Auto) 0.0 x10^3/uL (0.0-0.2) Platelet Estimate Decreased (ADEQUATE) Large Platelets Few Giant Platelets Occ Sodium Level 130 mmol/L (136-145) Potassium Level 4.1 mmol/L (3.5-5.1) Chloride Level 91 mmol/L (98-107) Carbon Dioxide Level 26 mmol/L (21-32) Anion Gap 13 (6-14) Blood Urea Nitrogen 11 mg/dL (7-20) Creatinine 0.6 mg/dL (0.6-1.0) Estimated GFR (Cockcroft-Gault) 134.0 Glucose Level 159 mg/dL (70-99) Calcium Level 8.7 mg/dL (8.5-10.1) Phosphorus Level 3.2 mg/dL (2.6-4.7) Magnesium Level 1.9 mg/dL (1.8-2.4) Imaging Radiographs reveal postoperative fixation of the tibial plateau fracture with stable alignment. Assessment Assessment POD#1 status post right knee tibial plateau fracture ORIF. Plan Plan of Care Patient is doing well and pain is improving. She will continue working with physical therapy. Orthopedically stable for discharge. Keep surgical dressings clean dry and intact until follow-up. Right lower extremity nonweightbearing, front wheel walker/crutches for ambulation assistance. Outpatient orthopedic follow-up in 10 to 14 days from discharge. Justicifation of Admission Dx: Justifications for Admission: Justification of Admission Dx: Yes CHRISTIAN TAN DO Jan 09, 2021 13:06
[2021-01-09 15:00] VITALS: BP 140/76
[2021-01-09 19:00] VITALS: BP 121/65
[2021-01-09 23:00] VITALS: BP 137/70
[2021-01-10] MEDS: oxyCODONE/APAP 5/325 1 TAB TABLET PO PRN ×3 (00:05→16:27)
[2021-01-10 03:00] VITALS: BP 129/60
[2021-01-10 07:00] VITALS: BP 137/79
[2021-01-10 08:10] LABS: BASO % 0 % (0-3); EOS % 0 % (0-3); HEMATOCRIT 33.3 % (36.0-47.0); HEMOGLOBIN 11.2 g/dL (12.0-15.5); LYMPH # 1.7 x10^3/uL (1.0-4.8); LYMPH % 28 % (24-48); MEAN CORPUSCULAR HEMOGLOBIN 30 pg (25-35); MEAN CORPUSCULAR HGB CONC 34 g/dL (31-37); MEAN CORPUSCULAR VOLUME 91 fL (79-100); MONO # 0.7 x10^3/uL (0.0-1.1); MONO % 12 % (0-9); NEUT # 3.5 x10^3/uL (1.8-7.7); NEUT % 59 % (31-73); PLATELET COUNT 74 x10^3/uL (140-400); RED BLOOD COUNT 3.67 x10^6/uL (3.50-5.40); RED CELL DISTRIBUTION WIDTH 13.2 % (11.5-14.5); WHITE BLOOD COUNT 5.9 x10^3/uL (4.0-11.0)
[2021-01-10 08:30] LABS: CREATININE 0.4 mg/dL (0.6-1.0); GFR 213.9; MAGNESIUM 1.8 mg/dL (1.8-2.4); POTASSIUM 3.4 mmol/L (3.5-5.1)
[2021-01-10] MEDS: NICOTINE 14MG PATCH. TD SCH (09:31)
--- NOTE | 2021-01-10 10:08 | NUR ---
SW following. Discussed with RN, pt from home with kids, room air, regular diet. COVID-19 negative. Pt had surgery on 01/08. PT/OT ordered. Med Assist following for self pay status. SW will continue to follow.
[2021-01-10 11:00] VITALS: BP 122/67
[2021-01-10] MEDS ORDERED: OXYC1TAB15 PO (13:22)
[2021-01-10] MEDS ORDERED: AMLO-187 PO (13:22)
[2021-01-10] MEDS ORDERED: SENN1TAB99 PO (13:22)
[2021-01-10] MEDS ORDERED: Nicotine 14MG TD (13:22)
--- NOTE | 2021-01-10 13:25 | SNU/HH DC ---
DISCHARGE WITH HOME HEALTH DISCHARGE INFORMATION: Discharge Date: Jan 10, 2021 Final Diagnosis: Problems Medical Problems: (1) Fracture of head of fibula Status: Acute (2) Lipohemarthrosis Status: Acute (3) Tibial plateau fracture, right Status: Acute Condition on Discharge: Stable HOME HEALTH: Face to Face: I certify this patient is under my care and that I, or a nurse practitioner or physician's outreach assistant working with me, had a face to face encounter that meets the physician face to face encounter requirements with this patient on []. RN For Eval/Treatment: Yes Physical Therapy For: Evalulation/Treatment Occupational Therapy For: Evaluation/Treatment Pt Meets Homebound Status: Poor coordination w/ amb., Frequent falls w/ injury, Limited distance walking POST DISCHARGE ORDERS: Activity Instructions for Disc: Activity as tolerated Weight Bearing Status after Di: As tolerated DIET AFTER DISCHARGE: Cardiac Wound/Incision Care: No wound care needed CHECKS AFTER DISCHARGE: Checks after discharge: Check blood press - daily FOLLOW-UP: Follow up with: PCP within 2 weeks of discharge Follow Up With: Orthopedic surgery within 10 to 14 days TREATMENT/EQUIPMENT ORDERS: Adaptive Equipment Issued: None, Four wheeled walker CERTIFICATION STATEMENT: Certification Statement: Certification Statement: Based on the above finding, I certify that this patient is confined to the home and needs intermittent longterm care, physical therapy and/or speech therapy, or continues to need occupational therapy.~ This patient is under my care, and I have initiated the establishment of the plan of care.~ This patient will be followed by myself or a community physician who will periodically review the plan of care. Home Meds Active Scripts Oxycodone/Apap 5-325 (PERCOCET 5-325 MG TABLET ) 1 Each Tablet, 1 TAB PO PRN Q6HRS PRN for PAIN for 3 Days, #12 TAB 0 Refills Prov:GAUTAM JONES MD 01/10/21 Sennosides/Docusate Sodium (Senna-Docusate Sodium Tablet) 1 Each Tablet, 1 TAB PO DAILY PRN for CONSTIPATION for 20 Days, #20 TAB 0 Refills Prov:GAUTAM JONES MD 01/10/21 Amlodipine Besylate (AMLODIPINE BESYLATE) 10 Mg Tablet, 10 MG PO DAILY for high blood pressure for 30 Days, #30 TAB 2 Refills Prov:GAUTAM JONES MD 01/10/21 [Nicotine 14MG] 1 PATCH PATCH No Conflict Check, 1 PATCH TD DAILY for smoking cessation for 30 Days, #30 2 Refills Prov:GAUTAM JONES MD 01/10/21 Reported Medications Acetaminophen (TYLENOL) 325 Mg Tablet, 650 MG PO PRN Q4HRS PRN for MILD PAIN / TEMP > 100.3'F, TAB 04/24/20 Discontinued Scripts Doxycycline Hyclate (DOXYCYCLINE HYCLATE) 100 Mg Tablet, 100 MG PO BID for Cellulitis for 10 Days, #20 TAB Prov:ERICA PERALES MD 04/26/20 Amoxicillin/Potassium Clav (AMOX TR-K CLV 875-125 MG TAB) 1 Each Tablet, 1 TAB PO BID for Cellulitis for 10 Days, #20 TAB Prov:ERICA PERALES MD 04/26/20 GAUTAM JONES MD Jan 10, 2021 13:25
--- NOTE | 2021-01-10 17:23 | NUR ---
Patient discharged with instructions and walker with spouse. Patient verbalized understanding . all scripts telephone to pharmacy of choice.
--- NOTE | 2021-01-11 18:11 | PDOC3 ---
[facility]-Discharge Summary Date of Admission: Date of Admission: Jan 08, 2021 Date of Discharge: Date of Discharge: Jan 10, 2021 Discharge Diagnosis: Discharge Diagnosis: Acute traumatic mildly comminuted fracture of the medial tibial plateau status post ORIF on 01/09/2021 Acute traumatic nondisplaced fracture of the proximal fibular head. Moderate lipohemarthrosis. Hospital Course: Hospital Course: 40 year old female who presents with right knee pain. Started approximately 3 hours ago when she attempted to kick down a door. States that she felt the pop sensation immediately and had immediate pain. Has had increased swelling around her knee since then and increasing pain. Pain much worse with range of motion. Called EMS for transport to the emergency department. 01/09/2021 No acute events overnight. Patient seen examined bedside. Patient tolerated procedure well. Pain is well controlled. Patient was hypertensive requiring some hypertensives and was started on amlodipine 10 mg daily. Nausea vomiting yesterday requiring one-time dose of IV Zofran. Pending PT OT evaluation. Patient's chart, labs, images were reviewed and discussed with RN Pt tolerated procedure well without major complications By day of discharge, pt was clinically stable and ready for discharge. Rest of hospital course was uneventful Disposition: Disposition/Orders: D/C to Home Activity: Activity: Resume previous activity Diet: Diet: Cardiac Medications: Home Meds Active Scripts Oxycodone/Apap 5-325 (PERCOCET 5-325 MG TABLET ) 1 Each Tablet, 1 TAB PO PRN Q6HRS PRN for PAIN for 3 Days, #12 TAB 0 Refills Prov:GAUTAM JONES MD 01/10/21 Sennosides/Docusate Sodium (Senna-Docusate Sodium Tablet) 1 Each Tablet, 1 TAB PO DAILY PRN for CONSTIPATION for 20 Days, #20 TAB 0 Refills Prov:GAUTAM JONES MD 01/10/21 Amlodipine Besylate (AMLODIPINE BESYLATE) 10 Mg Tablet, 10 MG PO DAILY for high blood pressure for 30 Days, #30 TAB 2 Refills Prov:GAUTAM JONES MD 01/10/21 [Nicotine 14MG] 1 PATCH PATCH No Conflict Check, 1 PATCH TD DAILY for smoking cessation for 30 Days, #30 2 Refills Prov:GAUTAM JONES MD 01/10/21 Reported Medications Acetaminophen (TYLENOL) 325 Mg Tablet, 650 MG PO PRN Q4HRS PRN for MILD PAIN / TEMP > 100.3'F, TAB 04/24/20 Discontinued Scripts Doxycycline Hyclate (DOXYCYCLINE HYCLATE) 100 Mg Tablet, 100 MG PO BID for Cellulitis for 10 Days, #20 TAB Prov:ERICA PERALES MD 04/26/20 Amoxicillin/Potassium Clav (AMOX TR-K CLV 875-125 MG TAB) 1 Each Tablet, 1 TAB PO BID for Cellulitis for 10 Days, #20 TAB Prov:ERICA PERALES MD 04/26/20 Scheduled Amlodipine Besylate (Amlodipine Besylate), 10 MG PO DAILY [Nicotine 14MG], 1 PATCH TD DAILY Scheduled PRN Acetaminophen (Tylenol), 650 MG PO PRN Q4HRS PRN for MILD PAIN / TEMP > 100.3'F, (Reported) Oxycodone/Apap 5-325 (Percocet 5-325 Mg Tablet ), 1 TAB PO PRN Q6HRS PRN for PAIN Sennosides/Docusate Sodium (Senna-Docusate Sodium Tablet), 1 TAB PO DAILY PRN for CONSTIPATION Discontinued Medications Amoxicillin/Potassium Clav (Amox Tr-K Clv 875-125 Mg Tab), 1 TAB PO BID Doxycycline Hyclate (Doxycycline Hyclate), 100 MG PO BID Total Time: Total Time: Total time spent was 32 minutes in preparing scripts, discharge planning with SW and RN, and preparing this discharge summary. Justicifation of Admission Dx: Justifications for Admission: Justification of Admission Dx: Yes GAUTAM JONES MD Jan 11, 2021 18:11
== END 2021-01-10 17:25 | disposition home health service (06) | DRG 494 ==
LOC: ER 04:12 → 4 NORTH 05:33
PROVIDERS: ADMIT Internal Medicine; ATTEND Internal Medicine
PROC: 0QSG04Z Reposition Right Tibia with Internal Fixation Device, Open Approach (ICD-10-PCS; principal; 2021-01-08 14:00)
DX: S82.141A Displaced bicondylar fracture of right tibia, initial encounter for closed fracture (principal); F17.200 Nicotine dependence, unspecified, uncomplicated; S82.424A Nondisplaced transverse fracture of shaft of right fibula, initial encounter for closed fracture; I10 Essential (primary) hypertension; J44.9 Chronic obstructive pulmonary disease, unspecified; S20.229A Contusion of unspecified back wall of thorax, initial encounter; K21.9 Gastro-esophageal reflux disease without esophagitis; Z20.822 Contact with and (suspected) exposure to COVID-19; W01.0XXA Fall on same level from slipping, tripping and stumbling without subsequent striking against object, initial encounter; Y93.89 Activity, other specified; Z82.49 Family history of ischemic heart disease and other diseases of the circulatory system; Z98.891 History of uterine scar from previous surgery; Z87.01 Personal history of pneumonia (recurrent); Y92.89 Other specified places as the place of occurrence of the external cause; Y99.8 Other external cause status
CPT/HCPCS: 36415; 73562; 73700; 80048; 81025; 83735; 84100; 85025; 87426; A4209; A4223; A4930; A6253; A6402; A6450; A6455; C1713; C1769; J0690; J1100; J2270; J2405; J2704; J3010; J3490; J7120; U0003; U0005; 97116-GP; 97530-GO; 97535-GO; 99285-25; G0378